=== PATIENT | male | born 1965 | race Caucasian/White ===

== ENCOUNTER → 2020-08-15 09:46 | Outpatient (BNVA) | payer OTHER, SELFPAY | PROVIDERS: PCP Internal Medicine; Visit Provider Urology ==

== ENCOUNTER 2020-09-08 08:04 | Day surgery (SDC) | payer OTHER, SELFPAY ==
[2020-09-08 07:41] VITALS: BMI 24.3
[2020-09-08 08:21] VITALS: BP 132/78; PULSE 56; RESP 18; TEMP 36.6; O2SAT 97
[2020-09-08] MEDS: Lactated Ringers 1,000 ML 20 ML IVCONT (08:42)
--- NOTE | 2020-09-08 08:57 | MHC.SHP ---
Pre-Procedural Eval Section A The patient is an INPATIENT: No Changes since office visit: No Cold of Flu in the past 2 weeks, No New Medical Problems, No Changes in Medication and No Patient answered all questions The History & Physical has been completed within 30 days and I have reviewed it.: Yes Section B Chief Complaint: spermatocele Allergies: Allergies Allergy/AdvReac Type Severity Reaction Status Date / Time aspirin [ASA] Allergy Intermediate GI Verified 09/08/20 07:51 IRRITATION lactose [LACTOSE] Allergy Intermediate GI Verified 09/08/20 07:51 PAIN/BLOATING sulfur dioxide Allergy Intermediate RESP.DISTRE Verified 09/08/20 07:51 [SULFUR DIOXIDE] SS sulfadiazine Allergy Unknown Unknown Verified 09/08/20 07:51 Plan Diagnosis/Plan: Unchanged (left spermatocele removal) I have reviewed the history and physical and performed a pertinent physical examination on my patient. No changes have occurred unless specified.
--- NOTE | 2020-09-08 09:17 | P.CONAN_ITS ---
[facility] Active Problems Active Problems: All Active Problems (Updated 09/02/20 @ 16:11 by Madison adam) Spermatocele of epididymis, multiple (Acute) Past Medical History Medical History Anxiety Depression HTN (hypertension) Leg pain Lumbar degenerative disc disease PTSD (post-traumatic stress disorder) Family History Family History Father Brain tumor Cancer Mother Cancer Surgical History Surgical History History of hydrocelectomy Hx of colonoscopy Hx of right knee surgery Social History Social History Alcohol intake: never Smoking Status: Never smoker Use of substances other than those prescribed or required for medical reasons: No Have you been hit, kicked, punched, or otherwise hurt by someone within the past year? If so, by whom?: No Advance Directives: No Advance Directives Information Provided: No Advance Directives on File: No Recently lost weight without trying: No Meds Allergies Allergy/AdvReac Type Severity Reaction Status Date / Time aspirin [ASA] Allergy Intermediate GI Verified 09/08/20 07:51 IRRITATION lactose [LACTOSE] Allergy Intermediate GI Verified 09/08/20 07:51 PAIN/BLOATING sulfur dioxide Allergy Intermediate RESP.DISTRE Verified 09/08/20 07:51 [SULFUR DIOXIDE] SS sulfadiazine Allergy Unknown Unknown Verified 09/08/20 07:51 Active Medications: Current Medications Generic Name Dose Route Start Last Admin Trade Name Kennethq PRN Reason Stop Dose Admin Lactated Ringer's 1,000 mls @ 20 mls/hr 09/08/20 07:30 09/08/20 08:42 Lr IVCONT 20 mls/hr .Q24H CHELSEA Administration Cefazolin Sodium/Dextrose 2 gm in 50 mls @ 100 mls/hr 09/08/20 08:56 Ancef IV 09/08/20 09:25 PREOP ONE Home Medications Medication Instructions Recorded Confirmed Last Taken Type amlodipine 1 tab PO DAILY 09/02/20 09/02/20 09/08/20 History duloxetine 1 cap PO DAILY 09/02/20 09/02/20 09/08/20 History lorazepam 1 tab PO Q8H PRN 09/02/20 09/02/20 09/08/20 History propranolol 1 cap PO DAILY 09/02/20 09/02/20 09/08/20 History Exam Exam Date and Time: September 08, 2020916 Height,Weight and Vital Signs: Height 5 ft 10 in Weight 77.111 kg Last Vital Signs Temp 98 F 09/08/20 08:21 Pulse 56 09/08/20 08:21 Resp 18 09/08/20 08:21 BP 132/78 09/08/20 08:21 Pulse Ox 97 09/08/20 08:21 Airway Mallampati Class: II TM Dist: >3cm Neck ROM: Full Assessment and Plan Assessment Anesthesia Assessment: Anesthesia Plan Discussed and Chart Reviewed Final Anesthetic Review NPO: Yes ASA Class: II Final Preanesthetic Review: No Changes in Pt Med Stat, Meds/Allgs Chart Reviewed, Consent Obtained/Reviewed and Anes Risks/Benef Reviewed Patient Risk: Low Procedure Risk: Low Assessment/Block/Sedation in SS: Assess/Block/Sedation-SS Anesthetic Plan Anesthetic Plan: GA Disposition: Standard PACU
--- NOTE | 2020-09-08 12:31 | PM.OP ---
Brief Operative Note Date of Service: 09/08/20 Pre-op diagnosis: Left spermatocele Post-op diagnosis: same Procedure: Left spermatocelectomy Surgeon: Roger Rangel MD Anesthesia: GLMA Estimated blood loss (mL): 0 Pathology: other Condition: stable Disposition: same day
--- NOTE | 2020-09-08 12:32 | W.PM.OPN ---
Operative Note Operative Note Date of Service: 09/08/20 Narrative: PreOperative Diagnosis: Left spermatocele Post Operative Diagnosis: Left spermatocele Procedure: Left spermatocelectomy Surgeon: Dr Roger Rangel Anesthesia: General Indications for procedure: This is a 54-year-old male. Previous hydrocele on right side. Presented with what he called 3rd testicle. Was spermatocele on left side. Recommend removal since this impinging. Procedure: After informed consent was verified the patient was brought to the operating room and placed in a supine position. anesthesia was administered per protocol. Testicular area was shaved and prepped a sterile fashion. Safety pause time-out was observed. Antibiotics have been given. A 2 in midline incision was made in the median [place]he. This was carried onto the hydrocele and tunica on the left side. Testicle was delivered. A 2-3 cm spermatocele was seen into [place] with the head of the epididymis. This was slowly sharply and with cautery. The base of the spermatocele was located and follow rated. The space of the spermatocele was closed with 3-0 Vicryl. The testicle was placed back in its dependent position. A 2 layer closure overlying fashion with performed. Skin was closed with interrupted 4-0 chromic sutures. Dressing was placed He tolerated procedure well was extubated in the operating room transferred in stable condition to the recovery area. Pathology: Spermatocele sac Drains: []
[2020-09-08 12:40] VITALS: BP 124/93; PULSE 70; RESP 16; TEMP 36.6; O2SAT 100
[2020-09-08 12:45] VITALS: BP 133/90; PULSE 67; RESP 18; O2SAT 99
[2020-09-08 12:50] VITALS: BP 139/93; PULSE 65; RESP 16; O2SAT 99
[2020-09-08] MEDS: traMADoL HCL 50 MG TABLET PO (12:53)
[2020-09-08] MEDS: Acetaminophen 325 MG TABLET 650 MG PO (12:53)
[2020-09-08 12:55] VITALS: BP 136/83; PULSE 64; RESP 18; O2SAT 99
[2020-09-08 13:10] VITALS: BP 141/82; PULSE 76; RESP 18; TEMP 36.7; O2SAT 99
--- NOTE | 2020-09-08 13:28 | PM.OP ---
Brief Operative Note Date of Service: 09/08/20 Pre-op diagnosis: Prostate cancer Post-op diagnosis: same Procedure: Gold seed implant Surgeon: Roger Rangel MD Anesthesia: local Estimated blood loss (mL): 0 Pathology: none sent Condition: stable Disposition: same day
--- NOTE | 2020-09-08 13:29 | W.PM.OPN ---
Operative Note Operative Note Date of Service: 09/08/20 Narrative: Preoperative diagnosis: Prostate cancer Postoperative diagnosis: Prostate cancer Procedure: 1. Transrectal ultrasound-guided pudendal nerve block 2. Transrectal ultrasound-guided gold seed placement Surgeon: Dr. Roger Rangel Anesthetic: Local Indications for procedure: Prostate Cancer Procedure: After informed consent was verified, the patient was brought into the procedure area and lay left-hand side down on the table. Patient identity confirmed. Perioperative antibiotics confirmed. Gel was placed per rectum Ultrasound probe was placed per rectum A ultrasound-guided pudendal nerve block was performed using 10 cc of 1% lidocaine. 8 cc was placed at the base and 2 cc of the apex. 3 gold seed markers placed. 2 on the right, 1 on the left. The purpose is for triangulation. He tolerated the procedure well. Was able to ambulate to bathroom after 5 minutes. Printed instructions regarding antibiotic use and common side effects such as low-grade temperature and bleeding were given
== END 2020-09-08 13:46 | disposition home or self-care (01) ==
PROVIDERS: PCP Internal Medicine; Visit Provider Urology
PROC: (CPT 54840; principal; 2020-09-08 10:10)
DX: N43.40 Spermatocele of epididymis, unspecified (principal); I10 Essential (primary) hypertension; F43.10 Post-traumatic stress disorder, unspecified; F32.9 Major depressive disorder, single episode, unspecified; Z79.899 Other long term (current) drug therapy; Z88.8 Allergy status to other drugs, medicaments and biological substances; Z88.2 Allergy status to sulfonamides
CPT/HCPCS: 54840; 88304; J0690; J2250; J3010

== ENCOUNTER → 2020-10-14 09:36 | Outpatient (BNVA) | payer OTHER, SELFPAY | PROVIDERS: PCP Internal Medicine; Visit Provider Urology ==

== ENCOUNTER → 2021-04-15 13:17 | Outpatient (BNVA) | payer OTHER, SELFPAY | PROVIDERS: PCP Internal Medicine; Visit Provider Urology ==

== ENCOUNTER 2024-10-16 09:21 | Outpatient (REF) | payer MEDICARE, SELFPAY ==
[2024-10-16 13:28] LABS: MANUAL DIFF FLAG NO
[2024-10-16 13:34] LABS: Basophils Absolute Auto 0.1 X10*3/uL (0.0-0.2); Eosinophils Absolute Auto 0.4 X10*3/uL (0.0-0.4); Eosinophils Percent Auto 6.3 % (0-4); Hematocrit 45.2 % (42.0-52.0); Imm Gran Abs Auto 0.02 X10*3/uL (0.00-0.03); Imm Gran Pct Auto 0.3 % (0.0-0.4); Lymphocytes Absolute Auto 1.6 X10*3/uL (1.2-4.9); Lymphocytes Percent Auto 23.1 % (20-40); Mean Corpuscular HGB Conc 33.2 g/dl (31.0-36.0); Mean Corpuscular Hemoglobin 29.8 pg (27.0-33.0); Mean Corpuscular Volume 89.9 fL (80.0-98.0); Mean Platelet Volume 12.2 fL (9.4-12.4); Monocytes Absolute Auto 1.1 X10*3/uL (0.1-1.2); Monocytes Percent Auto 16.7 % (2-11); Neutrophils Absolute Auto 3.5 x10*3/uL (2.0-8.3); Neutrophils Percent Auto 52.6 % (45-73); Platelet Count 183 X10*3/uL (160-400); Red Blood Count 5.03 X10*6/uL (4.60-5.80); Red Cell Distribution Width 13.5 % (11.0-16.0); White Blood Count 6.7 X10*3/uL (4.8-10.8)
[2024-10-16 14:06] LABS: Alanine Aminotransferase 78 U/L (0-40); Albumin Level 4.3 g/dL (3.5-5.0); Alkaline Phosphatase 87 U/L (39-117); Anion Gap 11 (12-20); Aspartate Amino Transferase 88 U/L (5-37); Bilirubin Total 0.6 mg/dL (0.0-1.0); Blood Urea Nitrogen 10 mg/dL (9-16); Calcium 9.8 mg/dL (8.4-10.2); Carbon Dioxide 25 mmol/L (22-29); Chloride 107 mmol/L (96-108); Cholesterol 132 mg/dL (<200); Estimated Glomerular Filt Rate > 60; Glucose Random 90 mg/dL (60-115); HDL Cholesterol 25 mg/dL (>40); LDL Cholesterol Calculated 87 mg/dL (<100); Potassium 4.5 mmol/L (3.3-5.1); Sodium 138 mmol/L (135-145); Total Protein 8.3 g/dL (6.5-8.0); Triglycerides 103 mg/dL (<150)
[2024-10-16 15:01] LABS: Prostate Specific Antigen 0.15 ng/mL (<0.05-4.0)
== END 2024-10-16 09:22 | disposition home or self-care (01) ==
LOC: HO.MANLDS 09:21
PROVIDERS: Visit Provider Physician Assistant
DX: I10 Essential (primary) hypertension (principal); Z12.5 Encounter for screening for malignant neoplasm of prostate
CPT/HCPCS: 36415; 80053; 80061; 84153; 85025

== ENCOUNTER 2025-02-14 07:28 | Outpatient (AMB) | payer MEDICARE, SELFPAY ==
--- OUTSIDE RECORDS SUMMARY | 2025-02-14 07:30 | XMS_ITS | Encounter Summary ---
Author Organization [facility] Address [address] [facility] [address] [place] [id number] Phone Care Team Providers Care Family Law Paralegal Name Role Phone Nando López DO Primary Care Provider [phone] Encounter Details Date Type Department Care Team (Latest Contact Info) Description 06/08/2017 Transcribe Orders Virtual Department [address] [place] [address] Tami Haney PA-C [address] [place] [address] Chest pain, unspecified type (Primary Dx) Social History Tobacco Use Types Packs/Day Years Used Date Smoking Tobacco: Never Assessed Sex and Gender Information Value Date Recorded Sex Assigned at Not on file Legal Sex Male 9:42 PM EDT Gender Identity Not on file Sexual Orientation Not on file documented as of this encounter Plan of Treatment Not on file documented as of this encounter Visit Diagnoses Diagnosis Chest pain, unspecified type- Primary documented in this encounter Care Teams Family Law Paralegal Relationship Specialty Start Date End Date Nando López DO PCP - General Internal Medicine 12/06/17 documented as of this encounter Additional Source Comments The information contained in this document represents components of the legal health record. It is not the complete legal health record.[facility]
--- OUTSIDE RECORDS SUMMARY | 2025-02-14 07:30 | XMS_ITS | Encounter Summary ---
Author Organization [facility] Address [address] [facility] [address] [place] [id number] Phone Care Team Providers Care Licensed Optician Name Role Phone Nando López DO Primary Care Provider [phone] Encounter Details Date Type Department Care Team (Late st Contact Info) Description 06/07/2017 Ancillary Orders Virtual Department [address] [place] [address] Tami Haney, LORENE [address] [place] [address] Social History Tobacco Use Types Packs/Day Years Used Date Smoking Tobacco: Never Assessed Sex and Gender Information Value Date Recorded Sex Assigned at Not on file Legal Sex Male 9:42 PM EDT Gender Identity Not on file Sexual Orientation Not on file documented as of this encounter Plan of Treatment Not on file documented as of this encounter Visit Diagnoses Not on filedocumented in this encounter Care Teams Licensed Optician Relationship Specialty Start Date End Date Nando López DO PCP - General Internal Medicine 12/06/17 documented as of this encounter Additional Source Comments The information contained in this document represents components of the legal health record. It is not the complete legal health record.[facility]
--- OUTSIDE RECORDS SUMMARY | 2025-02-14 07:30 | XMS_ITS | Data Portability ---
Author Organization [facility], Telehealth Patient Home Address [address] [place] [address] Assessment No assessment recorded. Plan of Treatment Reminders Order Date Submit Date Provider Last Modified By Organization Details Last Modified Time Details Appointments FOLLO W UP 15 2024 10:30A M NAVA GRUBBS Not available Not available Not available Lab PSA, serum or plasm a 2024 025 [facility], [address] [place] [address], [id number], 10/17/2024 13:17:34 CMP, serum or plasm a 2024 025 [facility], [address] [place] [address], [address], 10/17/2024 13:17:33 lipid panel , blood 2024 025 [facility], [address] [place] [address], [address], 10/17/2024 13:17:33 CBC w/ auto diff 2024 025 [facility], [address] [place] [address], [id number], 10/17/2024 13:17:34 CMP, serum or plasm a 2022 023 [facility] (Centralized Electronic Ordering - All Locations), Patient Can Go To The Location Of Their Choice, [id number] 05/03/2023 10:40:05 CBC w/ auto diff 2022 023 [facility] (Centralized Electronic Ordering - All Locations), Patient Can Go To The Location Of Their Choice, [address] 05/03/2023 10:40:05 lipid panel , blood 2022 023 [facility] (Centralized Electronic Ordering - All Locations), Patient Can Go To The Location Of Their Choice, [address] 05/03/2023 10:40:05 PSA, serum or plasm a 2022 023 [facility] (Centralized Electronic Ordering - All Locations), Patient Can Go To The Location Of Their Choice, [id number] 05/03/2023 10:40:05 Referral gastr maddy colon ist refer ral 2024 025 [facility], [address] [place] [address] Dr, [facility], [facility] Y[place]NE, [address], 10/17/2024 09:07:56 ortho pedic surge on refer ral 2023 024 [facility], [address], [address], [place], [address], 04/18/2024 13:36:04 Procedures None recor ded. Surgeries None recor ded. Imaging CT, chest , w/o contr ast - Patie nt does NOT have insur ance 2021 022 [facility], [address] [place], [address], 03/10/2022 08:27:26 Medication Orders propr anolo l ER 120 mg capsu le,24 hr,ex tende d relea se 2024 025 [facility] [place], [address] [place], [address], 02/07/2025 13:47:35 albut lani sulfa te HFA 90 mcg/a ctuat ion aeros ol inhal er 2024 025 [facility] [place], [address], [place], [address], 02/07/2025 13:47:37 amlod ipine 10 mg table t 2024 025 [facility] [place], [place]ne, [address], [place], [address], 02/07/2025 13:47:37 Tobra Dex 0.3 %-0.1 % eye drops ,susp ensio n 2024 025 [facility] [place], [place]ne, [address], [place], [address], 10/16/2024 10:06:10 propr anolo l ER 120 mg capsu le,24 hr,ex tende d relea se 2023 024 [facility] [place], [place]ne, [address] [place], [address], 11/04/2024 12:22:28 loraz epam 1 mg table t 2023 024 [facility] [place], [place], [address], [place], [address], 05/30/2024 11:23:43 amlod ipine 10 mg table t 2023 024 [facility] [place], [place], [address] [place], [address], 11/04/2024 12:22:28 propr anolo l ER 120 mg capsu le,24 hr,ex tende d relea se 2022 023 [facility] [place], [place], [address] [place], [address], 02/07/2024 11:21:02 amlod ipine 10 mg table t 2022 023 [facility] [place], [address] [place], [address], 02/07/2024 11:21:01 loraz epam 1 mg table t 2022 [id number] [facility] [place], [address] [place], [address], 02/08/2024 23:52:33 albut lani sulfa te 2.5 mg/3 mL (0.08 3 %) solut ion for nebul izati on 2022 [facility] [place], [address] [place], [address], 05/07/2023 10:36:53 albut lani sulfa te 2.5 mg/3 mL (0.08 3 %) solut ion for nebul izati on 2021 [facility] [place], [address] [place], [address], 02/19/2022 09:21:10 Flove nt HFA 110 mcg/a ctuat ion aeros ol inhal er 2021 [facility] [place], [address] [place], [address], 02/19/2022 09:21:10 benzo natat e 200 mg capsu le 2021 [email or web address] [facility] [place], [address] [place], [address], 05/03/2023 10:15:52 Patient TargetsNo targets recorded. Patient InstructionsNo instructions recorded. Reason for Referral Orthopedic Surgeon Referral for Pain of left shoulder joint needs second opinion for bilateral shoulder tears & degenerative changes Referring Physician: Danni Mehta, Internal Medicine, Encounter Date: 04/18/2024 Insurance Solicitor Referral for Screening colonoscopy due for 10 year colonoscopy Referring Physician: Danni Mehta, Internal Medicine, Encounter Date: 10/16/2024 Results Created Date Observation Date Name Description Value Unit Range Abnormal Flag Note LastModifiedBy Organization Detail LastModifiedTime 03/25/2003/25/2022 CT, chest , w/o contr ast No observ ation record ed. [email or web address] [facility] [address] [place], [address], 03/29/2022 16:54:00 Result Notes None recorded. Problems Name Problem SNOMED Code Status Onset Date Resolution Date Notes Provider Name and Address Organization Details Recorded Time Anxiety 15142529 Active 2017 stress reaction Not Available [facility] 3 23:42:13 [facility] hyperten giovanni 66957094 Active 2017 Not Available [facility] 3 23:42:13 Divertic ulitis 372373392 Active 2017 Not Available [facility] 3 23:42:13 Chronic low back pain 621229194 Active 2021 Not Available [facility] 3 23:42:13 Chronic obstruct gunnar pulmonar y disease 80884685 Active 2021 NAVA GRUBBS [address] [place], [address], [facility] [place] 5 09:50:05 Gastroes ophageal reflux disease without esophagi tis 025029912 Active 2021 NAVA GRUBBS [address] [place], [address], [facility] [place] 5 09:57:26 Gastroes ophageal reflux disease 905180777 Active 2022 Not Available [facility] 3 23:42:12 Pain of left shoulder joint 74954524547 623553 Active 2023 NAVA GRUBBS [address] [place], [address], [facility] [place] 4 09:27:33 Pain of right shoulder joint 73148000668 137472 Active 2023 NAVA GRUBBS [address] [place], [address], [facility] [place] 4 09:27:50 Hordeolu m externum of lower eyelid of left eye 06284812926 9102 Active 2024 NAVA GRUBBS [address] [place], [address], [facility] [place] 5 08:59:28 Notes:Some problems listed i n Documents: #[id number], #[id number], #[id number], #[id number], #[id number], #[id number] could not be added to this patient's chart. Please review these documents and add these problems to the patient's chart manually as needed. Problem Notes None recorded. Medical Equipment None Reported. Allergies Allergen ID Allergen Name Allergen Category Reaction Reaction Severity Criticality Documentation Date Start Date Code Code System Note Provider Name and Address Organization Details Recorded Time 1440 Substance with sulfonami de structure and antibacte rial mechanism of action (substanc e) medicatio n Not available Not available Not available 10/05/2017 41918 8003 SNOMED Lianne Blanco [facility] 8 10:18:50 3502 lisinopri l medicatio n nausea Not available Not available 01/29/2019 86267 [facility] 11:58:33 993 Product containin g penicilli n (product) medicatio n Not available Not available Not available 09/05/2017 38412 8001 [facility]ED [facility] 08:05:50 Medications Name Sig Start Date Stop Date Status Note LastModified by Organization Details LastModified Time prednison e 10 mg tablet take 5 tabs x 3 daystake 4 tabs x 3 daystake 3 tabs x 3 daystake 2 tabs x 3 daystake 1 tab x 3 days 01/22 completed Not Available Not Available Not Available Tylenol 500 mg capsule Take 2 tablets every 6 hours by oral route. 05/03 completed alternat ing with IBU, Aleve Not Available Not Available Not Available albuterol sulfate 2.5 mg/3 mL (0.083 %) solution for nebulizat ion USE 1 vial via nebulize r THREE TIMES DAILY active Not Available Not Available No t Available azithromy nneka 250 mg tablet TAKE 2 TABLETS BY MOUTH TODAY THEN TAKE 1 TABLET DAILY FOR THE NEXT 4 DAYS 02/19 completed Not Available Not Available Not Available ibuprofen 800 mg tablet TAKE 1 TABLET BY MOUTH THREE TIMES DAILY NEEDED WITH food active Not Available Not Available No t Available benzonata te 200 mg capsule TAKE 1 TABLET BY MOUTH THREE TIMES DAILY NEEDED FOR 14 DAYS. swallow whole 05/03 completed Not Available Not Available Not Available hydrocodo ne 5 mg-acetam inophen 325 mg tablet TAKE 1 TABLET BY MOUTH EVERY 4 HOURS NEEDED FOR PAIN 04/18 completed Not Available Not Available Not Available lisinopri l 20 mg tablet 09/05 completed Not Available Not Available Not Available prednison e 20 mg tablet TAKE 2 TABLETS BY MOUTH DAILY WITH food 02/19 completed Not Available Not Available Not Available amlodipin e 5 mg tablet Take 1.5 tablets every day by oral route as needed for 90 days. 12/06 completed Not Available Not Available Not Available tramadol 50 mg tablet TAKE 1 TABLET BY MOUTH every 6 hours NEEDED FOR PAIN (scale score 4-6) 02/19 completed Not Available Not Available Not Available cefadroxi l 500 mg capsule TAKE 2 CAPSULES BY MOUTH TWICE DAILY 04/18 completed Not Available Not Available Not Available oxycodone -acetamin ophen 5 mg-325 mg tablet Take 1 tablet every 6 hours by oral route for 15 days. 01/22 completed Not Available Not Available Not Available hydromorp km 2 mg tablet TAKE 1 TABLET EVERY 6 HOURS NEEDED 04/18 completed Not Available Not Available Not Available Valium 2 mg tablet Take 1 tablet 3 times a day by oral route as needed. 01/29 completed Not Available Not Available Not Available amlodipin e 10 mg tablet TAKE 1 TABLET BY MOUTH DAILY active Not Available Not Available No t Available benzonata te 100 mg capsule TAKE 1 CAPSULE BY MOUTH THREE TIMES DAILY NEEDED FOR cough. swallow whole 02/19 completed Not Available Not Available Not Available propranol ol ER 80 mg capsule,2 4 hr,extend ed release 09/05 completed Not Available Not Available Not Available furosemid e 20 mg tablet TAKE 2 TABLETS (40mg) BY MOUTH DAILY FOR 7 DAYS 10/16 completed Not Available Not Available Not Available propranol ol ER 120 mg capsule,2 4 hr,extend ed release Take 1 capsule by mouth once a day active Not Available Not Available No t Available lorazepam 1 mg tablet TAKE 1 TABLET BY MOUTH EVERY 8 HOURS NEEDED active Not Available Not Available No t Available albuterol sulfate HFA 90 mcg/actua tion aerosol inhaler Inhale 2 puffs by mouth every 4 hours as needed active Not Available Not Available No t Available lisinopri l 40 mg tablet TAKE 1 TABLET BY MOUTH ONCE DAILY 12/26 completed Not Available Not Available Not Available sertralin e 50 mg tablet 09/05 completed Not Available Not Available Not Available bacitraci n-polymyx in B 500 unit-10,0 00 unit/gram eye ointment APPLY DIRECTLY ON RIGHT UPPER EYELID THREE TIMES DAILY FOR 1 WEEK 10/16 completed Not Available Not Available Not Available tobramyci n 0.3 %-dexamet hasone 0.1 % eye drops,glenny pension INSTILL 1 DROP INTO AFFECTED EYE(S) BY OPHTHALM IC ROUTE EVERY 6 HOURS active Not Available Not Available No t Available duloxetin e 30 mg capsule,d elayed release TAKE 1 CAPSULE BY MOUTH DAILY 04/18 completed Not Available Not Available Not Available duloxetin e 60 mg capsule,d elayed release TAKE 1 CAPSULE BY MOUTH DAILY 06/06 completed Not Available Not Available Not Available Flovent HFA 110 mcg/actua tion aerosol inhaler Inhale 1 puff twice a day by inhalati on route. active Not Available Not Available No t Available Boostrix Tdap 2.5 Lf unit-8 mcg-5 Lf/0.5 mL intramusc ular syringe 12/26 completed Not Available Not Available Not Available Aleve 3 to 4 times a day prn 01/22 completed Not Available Not Available Not Available IBU-200 Takes 2 tablets every 4 to 6 hours. Alternat es with Tylenol and Aleve 01/22 completed Not Available Not Available Not Available Procto-Me d HC 2.5 % topical cream perineal applicato r APPLY A THIN LAYER TO THE AFFECTED AREA(S) BY TOPICAL ROUTE 2-4 TIMES DAILY 05/03 completed Not Available Not Available Not Available Afluria Qd 2018- (36 mos up)(PF)60 mcg (15 mcg x4)/0.5 mL IM syringe ADM 0.5ML IM UTD 10/01 completed Not Available Not Available Not Available Vitals Date Recorded Body height Body mass index (BMI) Body weight Heart rate Oxygen saturation Oxygen saturation in Arterial blood by Pulse oximetry Systolic And Diastolic Provider Name and Address Organization Details Last Updated DateTime 5 175.26 cm 23.8 kg/m2 42017.1 7 g 63 /min 98 % 98 % 122/78 mm[Hg] Marianna Garcias [facility] 5 08:54:07 Date Recorded Body height Body mass index (BMI) Body weight Heart rate Oxygen saturation Oxygen saturation in Arterial blood by Pulse oximetry Systolic And Diastolic Provider Name and Address Organization Details Last Updated DateTime 5 175.26 cm 23.8 kg/m2 96329.3 7 g 60 /min 98 % 98 % 128/70 mm[Hg] Kim Avilez [facility] 5 09:41:24 Date Recorded Body height Oxygen saturation Oxygen saturation in Arterial blood by Pulse oximetry Heart rate Systolic And Diastolic Provider Name and Address Organization Details Last Updated DateTime 2 175.26 cm 96 % 96 % 72 /min 124/70 mm[Hg] Hollie Hauser [facility] 2 08:57:55 Date Recorded Body height Body mass index (BMI) Body weight Heart rate Oxygen saturation Oxygen saturation in Arterial blood by Pulse oximetry Systolic And Diastolic Provider Name and Address Organization Details Last Updated DateTime 4 175.26 cm 23.6 kg/m2 98374.7 8 g 60 /min 98 % 98 % 120/80 mm[Hg] Kim Avilez [facility] 4 09:10:07 Date Recorded Body weight Heart rate Oxygen saturation Oxygen saturation in Arterial blood by Pulse oximetry Systolic And Diastolic Provider Name and Address Organization Details Last Updated DateTime 3 42629.9 6 g 62 /min 99 % 99 % 98/62 mm[Hg] Ester Shanks [facility] 3 10:18:37 Social History Question Answer Notes LastModified by Organizat ion Details LastModified Time Tobacco Smoking Status Current Some Day Smoker Not Available [facility] 03/18/2020 03:36:23 What Was The Date Of Your Most Recent Tobacco Screening? 02/06/2025 [email or web address] Information not available 02/06/2025 How Much Tobacco Do You Smoke? 0.25 PPD Information not available 09/09/2021 How Many Years Have You Smoked Tobacco? 40 [id number] Information not available 03/18/2020 Sex: Unknown Functional Status Question Answer Note LastModified by Organization D etails LastModified Time Do you or have you ever used any other forms of tobacco or nicotine? No Information not available 09/09/2021 Mental Status None recorded. Family History Nothing Reported. Medical History No medical history recorded. Immunizations Vaccine Type Date Status Note Provider Nam e and Address Organization Details Recorded Time COVID-19, mRNA, LNP-S, PF, 30 mcg/0.3 mL dose 1 completed Not Available [facility] 05/05/2023 23:42:13 COVID-19, mRNA, LNP-S, PF, 30 mcg/0.3 mL dose 1 completed Not Available [facility] 05/05/2023 23:42:13 COVID-19, mRNA, LNP-S, PF, 30 mcg/0.3 mL dose 1 completed Not Available [facility] 05/05/2023 23:42:13 Influenza, split virus, quadrivalent, preservative 1 completed Not Available [facility] 05/05/2023 23:42:13 Tdap 8 completed Not Available [facility] 05/05/2023 23:42:13 Influenza, split virus, quadrivalent, preservative 9 completed Not Available [facility] 05/05/2023 23:42:13 Past Encounters Encounter ID Performer Location Encounter Start Date Encounter Closed Date Diagnosis/Indication Diagnosis SNOMED-CT Code Diagnosis ICD10 Code Diagnosis IMO Codes Diagnosis Note [id number] DO Abiel [facility] [address] [facility],[address] [facility] [place] [address] 09/05/2017 13:46:20 09/05/2017 15:35:07 Anxiety 38860627 F41.9 not well controlled on lorazepam alone at some point I believe we will need to retry a different SSRI, for the time being patient wants to trial CBD oil. I have explained that there is not robust evidence suggesting benefits of CBD oil for either anxiety or HTN. nonetheles s pt would like to try. will fill out aflac paperwork to take time out of work while BP and anxiety are stabilized Essential hypertension 21097737 I10 continue lisinopril , amlodipine , propranolo l f/u 2 weeks, further changes at that time. too early to assess full affect of amlodpine Cyst of epididymis 09293 002 N50.3 found in ED, seen on u/s [id number] Nando López [facility] [address] [facility],[place] [address] 10/05/2017 10:08:01 10/05/2017 11:11:27 Anxiety 14089135 F41.9 still on just the lorazepam 1 mg TID anxiety has been a little better, not as tired or fatigued has been working less Essential hypertension 85766850 I10 continue lisinopril , amlodipine , propranolo l f/u 2 weeks, further changes at that time. too early to assess full affect of amlodpine Cyst of epididymis 19916 002 N50.3 has f/u with urology [id number] Nando López [facility] [address] [facility] [place] [address] 11/02/2017 11:03:43 11/02/2017 11:58:25 Anxiety 76459089 F41.9 still on just the lorazepam 1 mg TID, tries to take fewer doses, but then his anxiety amps up anxiety has been a little better, not as tired or fatigued he's been on disability for poorly controlled htn, which is exacerbate d by stress/anx iety of his job already seeing therapy. not seeing psych - will consult Essential hypertension 25251025 I10 continue lisinopril , propranolo l increase amlodipine Cyst of epididymis 14677 002 N50.3 has f/u with urology [id number] Nando López DO [facility] [address] [facility] [address],[place] [address] 12/06/2017 08:53:34 12/06/2017 09:46:06 Anxiety 54069379 F41.9 still on just the lorazepam 1 mg TID he's been on disability for poorly controlled htn, which is exacerbate d by stress/anx iety of his job already seeing therapy. not seeing psych - will consult Essential hypertension 99993033 I10 well controlled on current regimen Cyst of epididymis 61224 002 N50.3 has f/u with urology Joint pain in right hand 9362741935 082822 M25.541 [id number] Nando López DO [facility] [address] [facility],[place] [address] 01/06/2018 09:01:14 01/06/2018 13:57:58 Anxiety 07412551 F41.9 still on just the lorazepam 1 mg TID he's been on disability for poorly controlled htn, which is exacerbate d by stress/anx iety of his job already seeing therapy. he's [facility]ri [facility], but they are not really working to get his anxiety in any better control he will consider alternativ e providers. he understand s that if he chooses to pursue LT disability he will have to have the psychiatri st qualify this as I am no longer filling out disability on the basis of poorly controlled HTN. Essential hypertension 31520433 I10 well controlled on current regimen Screening procedure 2012 5006 Z13.9 [id number] Nando López DO [facility] [address] [facility] [address],[place] [address] 02/07/2018 09:15:48 02/07/2018 10:08:26 Anxiety 43669271 F41.9 still on just the lorazepam 1 mg TID he's been on disability for poorly controlled htn, which is exacerbate d by stress/anx iety of his job already seeing therapy. he's been seeing psychiatri st [facility], but they are not really working to get his anxiety in any better control he will consider alternativ e providers. he understand s that if he chooses to pursue LT disability he will have to have the psychiatri st qualify this as I am no longer filling out disability on the basis of poorly controlled HTN. Essential hypertension 95611047 I10 well controlled on current regimen Screening procedure 2012 5006 Z13.9 [id number] Nando López [facility] [address] [facility],[place] [address] [place] [place] [address] 05/05/2018 10:35:55 05/05/2018 15:54:36 Anxiety 39141059 F41.9 stable on the lorazepam pt will call for the rx, paying out of pocket until insurance kicks back in Essential hypertension 16353378 I10 well controlled on current regimen pt will call for rx [id number] Nando López [facility] [address] [facility],[place] [address] 12/26/2018 14:55:28 12/26/2018 15:56:33 Decrease in appetite 95972261 R63.0 will get labs as below Unintentio nal weight loss 849013952 R63.4 has lost about 10 lbs from 6 months ago Essential hypertension 70990472 I10 well controlled on current regimen pt will call for rx Anxiety 17713247 F41.9 stable on the lorazepam well controlled Screening procedure 2012 5006 Z13.9 [id number] Nando López [facility] [address] [facility],[place] [facility] [place] [address] 01/29/2019 11:29:28 01/29/2019 13:35:57 Acute low back pain 051196924 M54.5 will defer PT at this time Anxiety 49191986 F41.9 stable on the lorazepam well controlled Essential hypertension 91059406 I10 well controlled on current regimen pt will call for rx [id number] Nando López [facility] [address] [facility],[place] [facility] [place] [address] 05/02/2019 09:07:03 05/02/2019 09:35:22 Essential hypertension 93809429 I10 stable relates tolerating the med Diverticulitis 771055510 K57.92 quiet and is doing great Anxiety 50430636 F41.9 [place] [id number] Nando López [facility] [address] [facility] [address],[place] [address] 11/02/2019 15:48:02 11/02/2019 16:28:56 Anxiety 42880882 F41.9 stable Essential hypertension 26438063 I10 BP 124/90, excellent control on medication [id number] Nando López [facility] [address] [facility] [address],[place] [address] 12/24/2019 14:07:20 12/24/2019 14:59:51 Lumbago with sciatica 348636690 M54.42 will try anther pred taper and see if he improves had improvemen t last time he was on a pred taper Anxiety 84678475 F41.9 stable Essential hypertension 08923040 I10 BP 124/80, excellent control on medication [id number] Nando López [facility] [address] [facility],[place] [address] 01/01/2020 13:37:02 01/01/2020 14:40:21 Acute low back pain 311498044 M54.5 worsening Lumbar radiculopathy 128 869621 M54.16 still radiating down his leg with certain positions Spinal jos nosis of lumbar region 81061151 M48.061 no comfortabl e position > seeing specialist , will give short course of percocet [id number] Nando López [facility] [address] [facility] [address] [address] 02/11/2020 09:21:32 02/11/2020 12:09:36 Depressive disorder 82334904 F32.9 will try patient on cymbalta and see if he has improvemen t on that Low back pain 709844878 M54.5 some improvemen t due to insurance issue the patient cannot see specialist but is working on getting on disability will work on paperwork [id number] Nando López [facility] [address] [facility] [address] [address] 04/04/2020 09:31:37 04/04/2020 10:17:17 Anxiety 41307563 F41.9 stable Depressive disorder 3548 9007 F32.9 would like to increase dose will see if 60 mg is more beneficial if not can do max of 120 mg per day Essential hypertension 23600100 I10 needs refills [id number] Nando López [facility] [address] [facility] [address] [address] 12/02/2020 09:39:57 12/02/2020 10:52:55 Anxiety 34554589 F41.1 stable Essential hypertension 89703643 I10 stable Depressive disorder 3548 9007 F32.9 stable Degenerati on of lumbar intervertebral disc 60753300 M51.36 discussed alternativ es for second opinions Ex-smoker 8740521 Z87.89 1 will fu with screening XR first [id number] Nando López [facility] [address] [facility] [address] 09/09/2021 09:14:20 09/09/2021 17:01:39 Anxiety 55155165 F41.1 stable Essential hypertension 91975467 I10 stable Chronic low back pain 27 5069870 M54.59 stable [id number] Nando López [facility] [address] [facility] [address] [address] 02/19/2022 08:51:17 02/19/2022 10:51:56 Chronic obstructive pulmonary disease 04965058 J41.[address] up [address] for further evaluation of his lungsstart on neb treatment PRN for flare upsstart on ICS, will see what his insurance covers [employer] Lay refilled [id number] Nando López [facility] [address] [facility] [address] [address] 05/03/2023 10:12:00 05/03/2023 14:53:17 Chronic obstructive pulmonary disease 25135817 J41.0 stable Anxiety 48696076 F41.1 stable Gastroesop hageal reflux disease 308491514 K21.9 will set up with propranolo l Adult heal th examination 200698706 Z00.00 stable [id number] Nando López [facility] [address] [facility],[place] [address] 04/18/2024 09:02:35 04/18/2024 09:48:13 Chronic obstructive pulmonary disease 62140552 J41.0 stable Anxiety 07492312 F41.1 stable Pain of le ft shoulder joint 9509504335 7604397 M25.512 needs to f/u with a second opinion Pain of ri ght shoulder joint 1815285825 9256531 M25.511 tear of the supraspina tus now Gastroesop hageal reflux disease 807385633 K21.9 needs refill [id number] Nando López [facility] [address] [facility],[place] [address] 10/16/2024 08:48:23 10/16/2024 14:55:38 Depression screening 665188360 Z13.31 negative Hordeolum externum of lower eyelid of left eye 9369300857 43979 H00.763 8987436 will start on topical drop for eyes Chronic ob structive pulmonary disease 40178712 J41.0 stable Essential hypertension 06008069 I10 stable Screening colonoscopy 44 0711131 Z12.11 974553 will set up with GI referral for 10-year repeat colonoscop y Screening for malignant neoplasm of prostate 375983311 Z12.5 946331 needs screening [id number] Nando Otilio López [facility] [address] [facility],[place] [address] 02/06/2025 09:33:51 02/06/2025 10:23:09 Anxiety 41208224 F41.1 stable Gastroesop hageal reflux disease 716033544 K21.9 needs refill Chronic ob structive pulmonary disease 90182184 J41.0 stable Gastroesop hageal reflux disease without esophagitis 380165098 K21.00 stable Health Concerns Section Related Observation LastModified by Organization Detai ls LastModified Time None Recorded Concern Status LastModified by Organization Details LastModified Time None Recorded Advance Directives Directive None Recorded Payers Insurance Date Sequence Insurance Name Policy Number Policy Villafuerte Covered Member ID Villafuerte Member ID Guarantor Name 02/03/2025 1 [employer] [place] [employer] (MEDICAID HMO) MAMMP Sonny Trempe [id number] Sonny Trempe 01/29/2020 *SELF PAY* Shay louise Trempe 12/25/2019 *SELF PAY* Shay louise Trempe 05/02/2023 SLIDING FEE SCHEDULE - DISCOUNT Sonny Trempe 04/18/2024 1 [facility] [id number] Sonny Rivas Trempe [id number] Sonny Trempe 04/18/2024 1 [place] Sonny Trempe [id number] Sonny Trempe 04/18/2024 1 [facility] (MEDICAID REPLACEMENT - HMO) [id number] Sonny Trempe [id number] Sonny Trempe 04/18/2024 1 [facility] (MEDICAID REPLACEMENT - HMO) [id number] Sonny Trempe [id number] Sonny Trempe Notes Date Note Type Note Provider Name a al Address Organization Details Recorded Time 2 text/html ROS as noted in the HPI ER f/u the patient reports that he has congestion and coughXR showed possible COPD, will get CT for more clear view of the lungs for confirmation will start on correct inhalerscontinue albuterol, ipatropium, start ICS inhaler set up with nebulizer refill cough suppressant, use PRN will fu after CT [facility] [address] [place] [address], [phone], [facility] 02/19/2022 09:25:22 3 text/html Medicare Annual Wellness VisitReported by PatientSocial/Behavior al HistoryFor diet and nutrition, patient reportshealthy diet. For fracture risk, patient reportsno history of fractures,no recent explained fracture,no sudden unexplained fractures, andno previous musculoskeletal injuries. For physical activity, patient reportsexercises on a regular basis,recent increase in physical activity, andgood physical condition.Mental Status:For depression risk, patient reportsnever feels sad, empty, or tearful,no loss of interest in activities,no significant changes in weight,no sleep disturbances or insomnia,no agitation,no loss of energy,no feelings of worthlessness or guilt,no thoughts of suicide,no history of depression, andno history of mood disorders. For orientation, patient reportsno disorientation to time,no disorientation to date, andno disorientation to place. For concentration and memory, patient reportsno decreased concentrating ability,no memory lapses or loss, anddoes not forget words. For speech/motor difficulties, patient reportsno speech difficulties,no difficulty expressing formulated concepts,no difficulty with fine manipulative tasks,no difficulty writing/copying,no slowed reaction time, anddoes not knock things over when trying to pick them up.Functional AbilityFor hearing, patient reportsno loss of hearing. For vision, patient reportsno vision problems. For activities of daily living, patient reportsable to bathe with limited or no assistance,able to contol urination and bowels,able to dress with limited or no assistance,able to feed self with limited or no assistance,able to get out of chair or bed with limited or no assistance,able to groom with limited or no assistance, andable to toilet with limited or no assistance. For instrumental activities of daily living, patient reportsable to do house work with limited or no assistance,able to grocery shop with limited or no assistance,able to manage medications with limited or no assistance,able to manage money with limited or no assistance,able to prepare meals with limited or no assistance, andable to use the phone with limited or no assistance. For falls risk assessment, patient reportsno frequent falls while walking,no fall in the past year,no fall since last visit, andno dizziness/vertigo. For home safety, patient reportsno unsafe carlito hazzards,no unsafe stairs,no unsafe gas appliances,working smoke/co detectors,wears protective head gear for biking/high velocity,use of seatbelts,practicing 'safer sex',no vision or hearing loss while driving,no fire arms,has hand bars in the bathroom/shower, andgood lighting in the home. the patient is currently recovering from surgery of his [place] his average resting HR is around 55 bpm asthma has been stable BP is excellent [facility] [address] [place], [address], [facility] [place], [facility] 05/03/2023 10:46:58 4 text/html ROS as noted in the HPI f/u medication check the patient reports the he is still having issues with his left shoulderhas had two surgeries which has not improved his issuesthe patient had bone spurs and arthritis that his doctor has had to go in twice nowthe patient still has limited ROM with flexion, extension, int and ext rotation the patient needs refill of his medication today in the office the patient BP is 120/80 L arm sittingthe patient is doing well on the BP medication with no side effects and no adjustment of their medications [facility] medicationdenies chest pain, sob, ankle swelling, orthopnea, palpitations will set up with second opinion for the L shoulder COPD stableGERD stable will try of the duloxetine since he thinks it's causing weeping eyes [facility] [address] [place], [address], [facility], [place] 04/18/2024 09:45:46 5 text/html ROS as noted in the HPI 6 mos medication check HTN: today in the office the patient BP is 122/78 L arm sittingthe patient is doing well on the BP medication with no side effects and no adjustment of their medications needed today [facility] the [facility] medicationdenies chest pain, sob, ankle swelling, orthopnea, palpitations hordeolum externum: both eyes, more predominant on the L lower eye lidsending in tobradex, continue warm compresses colonoscopy: the patient reports he is due for he 10 yr colonoscopy COPD: stable, no significant changes, no affect from allergies depression screening: The patient denies little pleasure in activities they find enjoyable, feeling depressed, difficulties sleeping, feeling tired or having little energy, change in appetite, feeling guilty, overwhelmed or unmotivated. The patient denies suicidal ideation, thoughts of hurting themselves or others. Their mood is appropriate, they show good judgement and clear understanding of the conversation. They are orientated to time, place and person. They are not expressing any concerning thoughts or actions that would need further investigation and treatment for mental health. [facility] [address] [place], [address], [facility], [place] 10/16/2024 09:16:22 5 text/html ROS as noted in the HPI f/u medication check HTN: today in the office the patient BP is 128/70 L arm sitting the patient is doing well on the BP medication with no side effects and no adjustment of their medications needed today at the appointment well-controlled on medication denies chest pain, sob, ankle swelling, orthopnea, palpitations COPD: stable, no issuesneeds a new inhaler GERD: stable eye/eye infection: the drops worked great for the patientgiven refillsrelated to allergies that develop/increase his risk for infectionalso using warm compresses [facility] [address] [place] [address], [phone], [facility] 02/06/2025 10:01:24
--- OUTSIDE RECORDS SUMMARY | 2025-02-14 07:31 | XMS_ITS | Clinical Summary ---
Author Organization [facility] Address [address] [place] [address] Phone Care Team Providers Care Retail Associate Name Role Phone Nando Lópze Primary Care Provider [phone] Social History Tobacco Use Types Packs/Day Years Used Date Smoking Tobacco: Never Assessed Education Answer Date Recorded Are you interested in more education? Not on cassie e 09/10/2022 Are you concerned about learning? Not on file 09/10/2022 No 09/10/2022 No 09/10/2022 Digital Access Answer Date Recorded No 10/11/2022 No 10/11/2022 No 10/11/2022 Reliable internet access at home? Not on file 10/11/2022 Device with a working camera? Not on file Sex and Gender Information Value Date Recorded Sex Assigned at Not on file Legal Sex Male 9:42 PM EDT Gender Identity Not on file Sexual Orientation Not on file Plan of Treatment Health Maintenance Due Date Last Done Comments Adult Td,Tdap Booster 1964 LIPID PANEL 1964 DEPRESSION SCREENING 1976 HEPATITIS C SCREENING 1982 HIV ONE-TIME SCREENING (18-6 5 YEARS) 1982 PNEUMOCOCCAL VACCINES (50+ years) (1 of 1 - PCV) 2014 ZOSTER VACCINES (1 of 2) 2014 COVID-19 VACCINE (2023-2 5 season) 2024 04/15/2021, 10/03/2020, 09/11/2020 RSV VACCINE (1 - 1-dose 75+ series) 09/19/2039 COLORECTAL CANCER SCREENING Completed HEPATITIS A VACCINES Aged Out No long er eligible based on patient's age to complete this topic HIB VACCINES Aged Out No longer eligi ble based on patient's age to complete this topic MENINGOCOCCAL VACCINES (ACWY) Aged Out No longer eligible based on patient's age to complete this topic MENINGOCOCCAL VACCINES (B) Aged Out N o longer eligible based on patient's age to complete this topic Medical Devices Not on file Insurance [place] [address] [place], [place] [address] [place], [place] [address] [place] [place] [address] [place] [place] [address] [place], [place] [address] Care Teams Retail Associate Relationship Specialty Start Date End Date Nando López DO [email or web address] PCP - General Internal Medicine 12/06/17 Additional Source Comments The information contained in this document represents components of the legal health record. It is not the complete legal health record.[facility]
--- OUTSIDE RECORDS SUMMARY | 2025-02-14 07:31 | XMS_ITS | Encounter Summary ---
Author Organization [facility] Address [address] [place] [address] Phone Care Team Providers Care Field Nurse Name Role Phone Nando López Primary Care Provider [phone] Encounter Details Date Type Department Care Team (Late st Contact Info) Description 12/06/2017 Ancillary Orders Virtual Department [address] [place] [address] Tami Haney, LORENE [address] [place] [address] Pain in joints of right hand Social History Tobacco Use Types Packs/Day Years Used Date Smoking Tobacco: Never Assessed Sex and Gender Information Value Date Recorded Sex Assigned at Not on file Legal Sex Male 9:42 PM EDT Gender Identity Not on file Sexual Orientation Not on file documented as of this encounter Plan of Treatment Not on file documented as of this encounter Results * XR HAND 3 OR MORE VIEWS (RIGHT) (12/06/2017 10:22 AM EDT) Anatomical Region Laterality Modality Hand Right Radiographic Zeny ging 12/06/2017 10:4 3 AM EDT Impressions 12/06/2017 10:45 AM EDT No significant bony abnormality. POS - [id number] Narrative 12/06/2017 10:45 AM EDT Frontal, lateral, and oblique views disclose no fracture, subluxation, or other significant abnormality involving the visualized regional skeletal structures. Procedure Note Abhinav Caldera MD - 12/06/2017 Frontal, lateral, and oblique views disclose no fracture, subluxation, orother significant abnormality involving the visualized regional skeletalstructures. IMPRESSION: No significant bony abnormality. POS - [id number] August Medina PAULSON IMG XR UPPER EXTREMITY Final Result documented in this encounter Visit Diagnoses Diagnosis Pain in joints of right hand Pain in joints of right hand documented in this encounter Care Teams Field Nurse Relationship Specialty Start Date End Date Nando López DO [email or web address] PCP - General Internal Medicine 12/06/17 documented as of this encounter Additional Source Comments The information contained in this document represents components of the legal health record. It is not the complete legal health record.[facility]
--- NOTE | 2025-02-14 07:45 | MHC.OFFVIS ---
Vital Signs 02/14/25 08:13 Height 5 ft 9 in Weight 168 lb BMI 24.8 BP 126/74 Blood Pressure Location Lt brachial Position Sitting Pulse 76 Pulse Oximetry (%) 98 Oxygen Delivery Method Room Air Intake Visit Reasons: [place] screening r/s 01/03/25 Intake Note: Patient new consult for pre Colonoscopy screening Patient denies any GI issues. Knot Cutter Required: No Accompanied by: Self / Same As Patient Allergies aspirin (ASA) Allergy (Intermediate, Verified 02/14/25 07:57) GI IRRITATION lactose (LACTOSE) Allergy (Intermediate, Verified 02/14/25 07:57) GI PAIN/BLOATING lisinopril Allergy (Intermediate, Verified 02/14/25 08:02) Abdominal Pain sulfur dioxide (SULFUR DIOXIDE) Allergy (Intermediate, Verified 02/14/25 07:57) RESP.DISTRESS shellfish derived (shellfish) Allergy (Mild, Verified 02/14/25 08:26) Stomach Upset sulfadiazine Allergy (Unknown, Verified 02/14/25 07:57) Unknown acetaminophen (From Percocet) Adverse Reaction (Mild, Verified 02/14/25 08:25) Headache oxycodone (From Percocet) Adverse Reaction (Mild, Verified 02/14/25 08:25) Headache Medication List - Last Reconciled 02/14/25 by Emily Gongora CNP albuterol sulfate 90 mcg/actuation (Ventolin HFA) 2 puffs inhalation Q6H PRN amlodipine 1 tab PO DAILY duloxetine 1 cap PO DAILY lorazepam 1 tab PO Q8H PRN propranolol ER 1 cap PO DAILY tobramycin-dexamethasone 0.3-0.1 % 1 drp ophthalmic (eye) Q6H HPI HPI [place] screening r/s 01/03/25: Details: Patient is a 59-year-old male with PMH of hypertension, PTSD, depression and anxiety. Referred by PCP for pre colonoscopy screening Patient is accompanied by his partner Esther. This will be his second colonoscopy. Reports his first was approx 10 years ago at [facility] with normal findings. Patient presents for screening colonoscopy. Denies any changes in bowel habits?reports daily BMs without constipation or diarrhea. Endorses chronic heartburn, worse when lying down and most nights, with associated raspy voice; symptomatically managed with antacids (Tums) as needed and positional adjustments (head elevation). Symptoms have been present for years. Denies dysphagia or regurgitation. Reports recent liver enzyme elevation (thought to be related to past high acetaminophen use and alcohol history). Eye allergies currently treated by ophthalmology, unrelated to GI. History notable for headaches and family history of multiple malignancies (see PMH). Patient denies: fever/chills, n/v, appetite changes, regurgitation,dysphasia, unintentional wt loss, ab pain or melena/hematochezia. Social hx: -ETOH use, 2-3x/week -occasional marijuana (edible), denies other recreational drug use -current smoker: barely, sometimes 2 cigarettes/day; a pack lasts 3?4 days; reducing due to respiratory concerns. - family hx as below -denies personal hx of CA -denies significant cardiopulmonary history -tolerated anesthesia in the past without difficulty [facility] Medical History (Updated 02/14/25 @ 08:49 by Emily Gongora CNP) Acid reflux Colon cancer screening Elevated liver enzymes Anxiety Leg pain Lumbar degenerative disc disease Depression PTSD (post-traumatic stress disorder) HTN (hypertension) Surgical History (Updated 02/14/25 @ 08:08 by Nichole Posey) Hx of shoulder replacement Hx of right knee surgery Hx of colonoscopy History of hydrocelectomy Family History (Updated 02/14/25 @ 08:28 by Emily Gongora CNP) Father Brain tumor Cancer Mother Cancer Sister Cancer Social History Alcohol intake: never Comment: Medicated, see MAR Review of Systems Const Reports as per HPI ENT Reports as per HPI Card Reports as per HPI Resp Reports as per HPI GI Reports as per HPI Reports as per HPI Physical Exam Vital Signs: Last Vital Signs Pulse 76 02/14/25 08:13 BP 126/74 02/14/25 08:13 Pulse Ox 98 02/14/25 08:13 Oxygen Delivery Method Room Air 02/14/25 08:13 BMI result Body Mass Index 24.8 Const General: healthy appearing, no acute distress and well developed Nutritional Appearance: average body habitus Orientation/consciousness: patient oriented x3 HEENT Head: Yes normal to inspection, Yes normocephalic and Yes atraumatic Face and sinus: Yes normal facial exam Eyes General: appearance normal, both eyes and all related structures Neck Neck: Yes normal visual inspection Resp Effort & Inspection: normal respiratory effort, able to speak in complete sentences, no tracheal deviation and symmetric chest movement Cardio Jugular venous distension: no JVD Neuro General: patient oriented x3 Gait exam (Neuro): Normal gait present Psych Appearance: grossly normal Mental Status: mental status grossly normal Speech and movement: Normal speech and movement present Affect: normal affect Attitude: cooperative Thought process: Normal thought process present Thought content: Normal thought content present Insight: Good insight present (Psych) Judgement: Good judgement present (Psych) Results Reviewed Results Reviewed: Laboratory Tests 10/16/24 09:25 Total Bilirubin 0.6 AST 88 H ALT 78 H Alkaline Phosphatase 87 Total Protein 8.3 H Albumin 4.3 Triglycerides 103 Cholesterol 132 LDL Cholesterol, Calc 87 HDL Cholesterol 25 L Assessment & Plan Assessment & Plan (1) Colon cancer screening: Code(s): Z12.11 - Encounter for screening for malignant neoplasm of colon Category: Medical Plan: Appropriate interval for 2nd screening colonoscopy (last C-scope 10 yrs ago, reported as normal). Additional Testing: - Standard colonoscopy prep with large-volume lavage (PEG-based), with pre-treatment using Senna (due to allergy to bisacodyl laxatives). - Prescriptions sent for bowel prep, Senna, and simethicone. Medication Management: Review and reconcile allergy profile/prep regimens. Lifestyle Recommendations: - Follow outlined prep instructions, including clear liquid diet, avoidance of red/blue/purple liquids, and arrange transportation. Follow-Up: Scheduling team to contact with date; in-office F/U post-procedure for results and any further management. (2) Acid reflux: Code(s): K21.9 - Gastro-esophageal reflux disease without esophagitis Category: Medical Qualifiers: Esophagitis presence: esophagitis presence not specified Qualified Code(s): K21.9 - Gastro-esophageal reflux disease without esophagitis Plan: - Chronic heartburn, reflux worse at night, raspy voice; responds to antacids and positional therapy; GERD features > typical frequency. - Additional Testing: Recommended EGD (upper endoscopy) to assess for esophagitis, Live's, other pathology (to be co-scheduled with colonoscopy). - Medication Management: Continue Tums PRN. Declined further acid suppression (PPI/H2) at this time. - Lifestyle Recommendations: - Elevate HOB, avoid late/evening meals, smaller/frequent meals, avoid triggers (alcohol, smoking, spicy/fatty/fried foods), weight management as able. - Follow-Up: Post-procedure visit to review EGD and colonoscopy results. (3) Elevated liver enzymes: Code(s): R74.8 - Abnormal levels of other serum enzymes Category: Medical Plan: elevated liver enzymes on 10/2024 labs, low HDL, diet pattern, EtOH use, previous acetaminophen overuse. Additional Testing: Specialty labs discussed (viral hepatitis, autoimmune markers, iron studies, synthetic function), but pt wishes to delay until post-colonoscopy; discuss with PCP/insurance as needed. Medication Management: No pharmacologic therapy indicated; review necessity of hepatotoxic meds; avoid unnecessary acetaminophen and EtOH. Lifestyle Recommendations: - Heart-healthy, liver-friendly diet (reduce fried and processed foods, increase whole foods/vegetables, lean protein, healthy fats) - Abstinence/minimization of EtOH intake - Weight optimization if overweight, increased physical activity if able Follow-Up: Readdress after colonoscopy/procedure; consider comprehensive metabolic evaluation then. Plan Follow-up after endoscopy or sooner as needed Time: I spent a total of 37 minutes on the date of encounter which includes: Preparing to see the patient (reviewed previous documentation, test results and medical history) Performing a medically appropriate exam and/or evaluation Ordering medications, tests, and procedures Documenting clinical information in the health record Orders: Referrals GI Procedure Notification K21.9 - Gastro-esophageal reflux disease without esophagitis, Z12.11 - Encounter for screening for malignant neoplasm of colon Medications: New simethicone (Gas Relief (simethicone)) per colonoscopy prep instructions 125 mg PO ONCE 4 caps 0RF abdominal distention sennosides (senna) two capsules nightly, starting 3 days prior to colonoscopy 17.2 mg (2 x 8.6 mg) PO BEDTIME 6 caps 0RF 3 days peg 3350-electrolytes 236-22.74-6.74 -5.86 gram until fecal effluent is clear 240 mL PO Q10M 4,000 mL 0RF Coding Level of Care Code New Pt New Pt Level 3 (94467) Patient Type New Diagnoses Colon cancer screening Z12.11 Gastroesophageal reflux disease, unspecified whether esophagitis present K21.9 Esophagitis presence: esophagitis presence not specified Elevated liver enzymes R74.8
[2025-02-14 08:13] VITALS: BP 126/74; PULSE 76; O2SAT 98; BMI 24.8
== END 2025-02-14 09:03 | disposition home or self-care (01) ==
LOC: HO.HGI 07:29
PROVIDERS: PCP Internal Medicine; Visit Provider Nurse Practitioner Family
DX: Z01.818 Encounter for other preprocedural examination (principal); Z12.11 Encounter for screening for malignant neoplasm of colon; K21.9 Gastro-esophageal reflux disease without esophagitis; R74.01 Elevation of levels of liver transaminase levels
CPT/HCPCS: 99024

== ENCOUNTER → 2025-02-14 07:28 | Outpatient (BNVA) | payer MEDICARE, SELFPAY | PROVIDERS: PCP Internal Medicine; Visit Provider Nurse Practitioner Family | DX: Z12.11 Encounter for screening for malignant neoplasm of colon (principal); K21.9 Gastro-esophageal reflux disease without esophagitis; R74.8 Abnormal levels of other serum enzymes | CPT/HCPCS: 99212 ==

== ENCOUNTER 2025-04-17 07:30 | Day surgery (SDC) | payer MEDICARE, SELFPAY ==
--- OUTSIDE RECORDS SUMMARY | 2025-04-04 17:19 | XMS_ITS | Encounter Summary ---
Author Organization [facility] Address [address] [place] [id number] Phone Care Team Providers Care Cutting Torch Operator Name Role Phone Nando López DO Primary Care Provider [phone] Encounter Details Date Type Department Care Team (Late st Contact Info) Description 12/06/2017 Ancillary Orders Virtual Department [address] [place] [address] Tami Haney, LORENE [address] [place] [address] [email or web address] Pain in joints of right hand Social [...] hand documented in this encounter Care Teams Cutting Torch Operator Relationship Specialty Start Date End Date Nando López DO [email or web address] PCP - General Internal Medicine 12/06/17 documented as of this encounter Additional Source Comments The information contained in this document represents components of the legal health record. It is not the complete legal health record.[facility]
--- OUTSIDE RECORDS SUMMARY | 2025-04-04 17:19 | XMS_ITS | Data Portability ---
Author Organization [facility], Telehealth Patient Home Address [address] [place] [address] Assessment No assessment recorded. Plan of Treatment Reminders Order Date Submit Date Provider Last Modified By Organization Details Last Modified Time Details Appointments FOLLO W UP 15 2024 10:30A M NAVA GRUBBS Not available Not available Not available Lab PSA, serum or plasm a 2024 025 [facility], [address] [place] [address], [id number], 10/17/2024 13:17:34 CMP, serum or plasm a 2024 025 [facility], [address] [place] [address], [id number], 10/17/2024 13:17:33 lipid panel , blood 2024 025 [facility], [address] [place] [address], [id number], 10/17/2024 13:17:33 CBC w/ auto diff 2024 025 [facility], [address] [place] [address], [id number], 10/17/2024 13:17:34 CMP, serum or plasm a 2022 023 [facility] (Centralized Electronic Ordering - All Locations), Patient Can Go To The Location Of Their Choice, [id number] 05/03/2023 10:40:05 CBC w/ auto diff 2022 023 [facility] (Centralized Electronic Ordering - All Locations), Patient Can Go To The Location Of Their Choice, [id number] 05/03/2023 10:40:05 lipid panel , blood 2022 023 [facility] (Centralized Electronic Ordering - All Locations), Patient Can Go To The Location Of Their Choice, [address] 05/03/2023 10:40:05 PSA, serum or plasm a 2022 023 [facility] (Centralized Electronic Ordering - All Locations), Patient Can Go To The Location Of Their Choice, [id number] 05/03/2023 10:40:05 Referral gastr maddy colon ist refer ral 2024 025 [facility], [address] [place] [address] Dr, [facility], [facility] YVONNE, [address], 10/17/2024 09:07:56 ortho pedic surge on refer ral 2023 024 [facility], [address], [address], [place], [address], 04/18/2024 13:36:04 Procedures None recor ded. Surgeries None recor ded. Imaging CT, chest , w/o contr ast - Patie nt does NOT have insur ance 2021 022 [facility], [address] [place], [address], 03/10/2022 08:27:26 Medication Orders propr anolo l ER 120 mg capsu le,24 hr,ex tende d relea se 2024 025 [facility] [place], [place], [address] [place], [address], 02/07/2025 13:47:35 albut lani sulfa te HFA 90 mcg/a ctuat ion aeros ol inhal er 2024 025 [facility] [place], [address], [place], [address], 02/07/2025 13:47:37 amlod ipine 10 mg table t 2024 025 [facility] [place], [place], [address], [place], [address], 02/07/2025 13:47:37 Tobra Dex 0.3 %-0.1 % eye drops ,susp ensio n 2024 025 [facility] [place], [place]ne, [address], [place], [address], 10/16/2024 10:06:10 propr anolo l ER 120 mg capsu le,24 hr,ex tende d relea se 2023 024 [facility] [place], [place]ne, [address] [place], [address], 11/04/2024 12:22:28 loraz epam 1 mg table t 2023 024 [facility] [place], [place], [address], [place], [address], 05/30/2024 11:23:43 amlod ipine 10 mg table t 2023 024 [facility] [place], [place], [address] [place], [address], 11/04/2024 12:22:28 propr anolo l ER 120 mg capsu le,24 hr,ex tende d relea se 2022 023 [facility] [place], [place], [address] [place], [address], 02/07/2024 11:21:02 amlod ipine 10 mg table t 2022 023 [facility] [place], [address] [place], [address], 02/07/2024 11:21:01 loraz epam 1 mg table t 2022 [id number] [facility] [place], [address] [place], [address], 02/08/2024 23:52:33 albut lani sulfa te 2.5 mg/3 mL (0.08 3 %) solut ion for nebul izati on 2022 [facility] [place], [address] [place], [address], 05/07/2023 10:36:53 albut lani sulfa te 2.5 mg/3 mL (0.08 3 %) solut ion for nebul izati on 2021 [facility] [place], [address] [place], [address], 02/19/2022 09:21:10 Flove nt HFA 110 mcg/a ctuat ion aeros ol inhal er 2021 [facility] [place], [address] [place], [address], 02/19/2022 09:21:10 benzo natat e 200 mg capsu le 2021 [email or web address] [facility] [place], [address] [place], [address], 05/03/2023 10:15:52 Patient TargetsNo targets recorded. Patient InstructionsNo instructions recorded. Reason for Referral Orthopedic Surgeon Referral for Pain of left shoulder joint needs second opinion for bilateral shoulder tears & degenerative changes Referring Physician: Danni Mehta, Internal Medicine, Encounter Date: 04/18/2024 [employer] Referral for Screening colonoscopy due for 10 year colonoscopy Referring Physician: Danni Mehta, Internal Medicine, Encounter Date: 10/16/2024 Results Created Date Observation Date Name Description Value Unit Range Abnormal Flag Note LastModifiedBy Organization Detail LastModifiedTime 03/25/2003/25/2022 CT, chest , w/o contr ast No observ ation record ed. [email or web address] [facility] [address] [place], [address], 03/29/2022 16:54:00 Result Notes None recorded. Problems Name Problem SNOMED Code Status Onset Date Resolution Date Notes Provider Name and Address Organization Details Recorded Time Anxiety 69081864 Active 2017 stress reaction Not Available [facility] 3 23:42:13 [facility] hyperten giovanni 65717200 Active 2017 Not Available [facility] 3 23:42:13 Divertic ulitis 288541370 Active 2017 Not Available [facility] 3 23:42:13 Chronic low back pain 455260906 Active 2021 Not Available [facility] 3 23:42:13 Chronic obstruct gunnar pulmonar y disease 78328808 Active 2021 NAVA GRUBBS [address] [place], [address], [facility] [place], [facility] 5 09:50:05 Gastroes ophageal reflux disease without esophagi tis 158795696 Active 2021 NAVA GRUBBS [address] [place], [address], [facility] [place], operated [facility] 5 09:57:26 Gastroes ophageal reflux disease 720603532 Active 2022 Not Available [facility] 3 23:42:12 Pain of left shoulder joint 11999950479 618155 Active 2023 NAVA GRUBBS [address] [place], [address], [facility], [place], operated [facility] 4 09:27:33 Pain of right shoulder joint 73329034060 854509 Active 2023 NAVA GRUBBS [address] [place], [address], [facility], [place], [facility] Internal [facility] 4 09:27:50 Hordeolu m externum of lower eyelid of left eye 36547502604 9102 Active 2024 NAVA GRUBBS [address] [place], [address], [facility], [place], [facility] Internal [facility] 5 08:59:28 Notes:Some problems listed i n Documents: #[id number], #[id number], #[id number], #[id number], #[id number], #[id number] could not be added to this patient's [...] Not available Not available Not available 10/05/2017 96321 8003 SNOMED Lianne Blanco [facility] 8 10:18:50 3502 lisinopri l medicatio n nausea Not available Not available 01/29/2019 69723 RxNorm [facility] 11:58[facility]33 993 Product containin g penicilli n (product) medicatio n Not available Not available Not available 09/05/2017 07612 8001 SN[facility]ED [facility] 08:05:50 Medications Name Sig Start [...] TABLET BY MOUTH EVERY 8 HOURS NEEDED 2024 active Not Available Not Available Not Avai lable albuterol sulfate HFA 90 mcg/actua tion aerosol [...] BY OPHTHALM IC ROUTE EVERY 6 HOURS 2024 active Not Available Not Available Not Avai lable duloxetin e 30 mg capsule,d elayed release [...] (BMI) Body weight Heart rate Oxygen saturation Systolic And Diastolic Provider Name and Address Organization Details Last Updated DateTime 5 175.26 cm 23.8 kg/m2 17389.1 7 g 63 /min 98 % 122/78 mm[Hg] Marianna Garcias [facility] 5 08:54:07 Date Recorded Body height Body mass index (BMI) Body weight Heart rate Oxygen saturation Systolic And Diastolic Provider Name and Address Organization Details Last Updated DateTime 5 175.26 cm 23.8 kg/m2 09808.3 7 g 60 /min 98 % 128/70 mm[Hg] Kim Avilez [facility] 5 09:41:24 Date Recorded Body height Oxygen saturation Heart rate Systolic And Diastolic Provider Name and Address Organization Details Last Updated DateTime 02/19/2022 175.26 cm 96 % 72 /min 124/70 mm[Hg] Hollie Hauser [facility] 02/19/2022 08:57:55 Date Recorded Body height Body mass index (BMI) Body weight Heart rate Oxygen saturation Systolic And Diastolic Provider Name and Address Organization Details Last Updated DateTime 4 175.26 cm 23.6 kg/m2 63489.7 8 g 60 /min 98 % 120/80 mm[Hg] Kim Avilez [facility] 4 09:10:07 Date Recorded Body weight Heart rate Oxygen saturation Systolic And Diastolic Provider Name and Address Organization Details Last Updated DateTime 05/03/2023 86424.96 g 62 /min 99 % 98/62 mm[Hg] Ester Shanks [facility] 05/03/2023 10:18:37 Social History Question Answer Notes LastModified by Organizat ion Details LastModified Time Tobacco Smoking Status Current Some Day Smoker Not Available [facility] 03/18/2020 03:36:23 What Was The Date Of Your Most Recent Tobacco Screening? 02/06/2025 [email or web address] Information not available 02/06/2025 How Much Tobacco Do You Smoke? 0.25 PPD Information not available 09/09/2021 How Many Years Have You Smoked Tobacco? 40 [id number] Information not available 03/18/2020 Sex: Unknown Functional [...] mcg/0.3 mL dose 1 completed Not Available [facility] 05/05/2023 23:42:13 COVID-19, mRNA, LNP-S, PF, 30 mcg/0.3 mL dose 1 completed Not Available [facility] 05/05/2023 23:42:13 COVID-19, mRNA, LNP-S, PF, 30 mcg/0.3 mL dose 1 completed Not Available [facility] 05/05/2023 23:42:13 Influenza, split virus, quadrivalent, preservative 1 completed Not Available [facility] 05/05/2023 23:42:13 Tdap 8 completed Not Available [facility] 05/05/2023 23:42:13 Influenza, split virus, quadrivalent, preservative 9 completed Not Available [facility] 05/05/2023 23:42:13 Past Encounters Encounter ID Performer Location Encounter Start Date Encounter Closed Date Diagnosis/Indication Diagnosis SNOMED-CT Code Diagnosis ICD10 Code Diagnosis IMO Codes Diagnosis Note [id number] Nando López DO [facility] [address] [facility],[place] [address] 09/05/2017 13:46:20 09/05/2017 15:35:07 Anxiety 80892401 F41.9 not well controlled on lorazepam alone [...] BP and anxiety are stabilized Essential hypertension 97184303 I10 continue lisinopril , amlodipine , propranolo l f/u 2 weeks, further changes at that time. too early to assess full affect of amlodpine Cyst of epididymis 76692 002 N50.3 found in ED, seen on u/s [id number] Nando López [facility] [address] [place] [address],[place] [address] 10/05/2017 10:08:01 10/05/2017 11:11:27 Anxiety 67314193 F41.9 still on just the lorazepam 1 mg TID anxiety has been a little better, not as tired or fatigued has been working less Essential hypertension 10586875 I10 continue lisinopril , amlodipine , propranolo l f/u 2 weeks, further changes at that time. too early to assess full affect of amlodpine Cyst of epididymis 98811 002 N50.3 has f/u with urology [id number] Nando López [facility] Internal [address],[facility] [address] 11/02/2017 11:03:43 11/02/2017 11:58:25 Anxiety 54932606 F41.9 still on just the lorazepam 1 mg TID, tries to take fewer doses, but then his anxiety amps up anxiety has been a little better, not as tired or fatigued he's been on disability for poorly controlled htn, which is exacerbate d by stress/anx iety of his job already seeing therapy. not seeing psych - will consult Essential hypertension 05878302 I10 continue lisinopril , propranolo l increase amlodipine Cyst of epididymis 08639 002 N50.3 has f/u with urology [id number] Nando López [facility] Medicine [address] [facility], shalini [place] [address] 12/06/2017 08:53:34 12/06/2017 09:46:06 Anxiety 83552956 F41.9 still on just the lorazepam 1 mg TID he's been on disability for poorly controlled htn, which is exacerbate d by stress/anx iety of his job already seeing therapy. not seeing psych - will consult Essential hypertension 26081950 I10 well controlled on current regimen Cyst of epididymis 93437 002 N50.3 has f/u with urology Joint pain in right hand 4463845981 009029 M25.541 [id number] Nando López, [facility] [address] [facility],[place]in[place] [address] 01/06/2018 09:01:14 01/06/2018 13:57:58 Anxiety 81982898 F41.9 still on just the lorazepam 1 mg TID he's been on disability for poorly controlled htn, which is exacerbate d by stress/anx iety of his job already seeing therapy. he's been seeing [facility]ri [facility], but they are not really working to get his anxiety in any better control he will consider alternativ e providers. he understand s that if he chooses to pursue LT disability he will have to have the psychiatri st qualify this as I am no longer filling out disability on the basis of poorly controlled HTN. Essential hypertension 45837238 I10 well controlled on current regimen Screening procedure 2012 5006 Z13.9 [id number] Nando López DO [facility] [address] [facility], [place] [address] 02/07/2018 09:15:48 02/07/2018 10:08:26 Anxiety 36171040 F41.9 still on just the lorazepam 1 mg TID he's been on disability for poorly controlled htn, which is exacerbate d by stress/anx iety of his job already seeing therapy. he's been seeing psychiatri st at [facility], but they are not really working to get his anxiety in any better control he will consider alternativ e providers. he understand s that if he chooses to pursue LT disability he will have to have the psychiatri st qualify this as I am no longer filling out disability on the basis of poorly controlled HTN. Essential hypertension 74017196 I10 well controlled on current regimen Screening procedure 2012 5006 Z13.9 [id number] Nando López [facility] [address] [facility],[place] [address] 05/05/2018 10:35:55 05/05/2018 15:54:36 Anxiety 61377352 F41.9 stable on the lorazepam pt will call for the rx, paying out of pocket until insurance kicks back in Essential hypertension 06076056 I10 well controlled on current regimen pt will call for rx [id number] Nando López [facility] Medicine [address] [facility],[place] [address] 12/26/2018 14:55:28 12/26/2018 15:56:33 Decrease in appetite 82105856 R63.0 will get labs as below Unintentio nal weight loss 483819472 R63.4 has lost about 10 lbs from 6 months ago Essential hypertension 85957039 I10 well controlled on current regimen pt will call for rx Anxiety 54071924 F41.9 stable on the lorazepam well controlled Screening procedure 2012 5006 Z13.9 [id number] Nando López [facility] Medicine [address] [facility],[place] [address] 01/29/2019 11:29:28 01/29/2019 13:35:57 Acute low back pain 629774136 M54.5 will defer PT at this time Anxiety 83736513 F41.9 stable on the lorazepam well controlled Essential hypertension 02043495 I10 well controlled on current regimen pt will call for rx [id number] Nando López [facility] Medicine [address] [facility] on [place] [address] 05/02/2019 09:07:03 05/02/2019 09:35:22 Essential hypertension 10275890 I10 stable relates tolerating the med Diverticulitis 402586540 K57.92 quiet and is doing great Anxiety 32909640 F41.9 will do ok and cont his current tx [id number] Nando López [facility] Medicine [address] [facility] on [place] [address] 11/02/2019 15:48:02 11/02/2019 16:28:56 Anxiety 73804182 F41.9 stable Essential hypertension 31965177 I10 BP 124/90, excellent control on medication [id number] Nando López [facility] Medicine [address] [facility],[place] [address] 12/24/2019 14:07:20 12/24/2019 14:59:51 Lumbago with sciatica 614630650 M54.42 will try anther pred taper and see if he improves had improvemen t last time he was on a pred taper Anxiety 67739621 F41.9 stable Essential hypertension 25278981 I10 BP 124/80, excellent control on medication [id number] Nando López [facility] Medicine [address] [facility],[place] [address] 01/01/2020 13:37:02 01/01/2020 14:40:21 Acute low back pain 497286036 M54.5 worsening Lumbar radiculopathy 128 805635 M54.16 still radiating down his leg with certain positions Spinal jos nosis of lumbar region 29642559 M48.061 no comfortabl e position > seeing specialist , will give short course of percocet [id number] Nando López [facility] [address] [facility],[place] [address] 02/11/2020 09:21:32 02/11/2020 12:09:36 Depressive disorder 18893304 F32.9 will try patient on cymbalta and see if he has improvemen t on that Low back pain 968677208 M54.5 some improvemen t due to insurance issue the patient cannot see specialist but is working on getting on disability will work on paperwork [id number] Nando López [facility] Medicine [address] [facility],[place] [address] 04/04/2020 09:31:37 04/04/2020 10:17:17 Anxiety 69563747 F41.9 stable Depressive disorder 3548 9007 F32.9 would like to increase dose will see if 60 mg is more beneficial if not can do max of 120 mg per day Essential hypertension 24631181 I10 needs refills [id number] Nando López [facility] Medicine [address] [facility] on [place] [address] 12/02/2020 09:39:57 12/02/2020 10:52:55 Anxiety 56015583 F41.1 stable Essential hypertension 31796912 I10 stable Depressive disorder 3548 9007 F32.9 stable Degenerati on of lumbar intervertebral disc 03292028 M51.36 discussed alternativ es for second opinions Ex-smoker 9937024 Z87.89 1 will fu with screening XR first [id number] Nando López [facility] Medicine [address] [facility] on [place] [address] 09/09/2021 09:14:20 09/09/2021 17:01:39 Anxiety 96661213 F41.1 stable Essential hypertension 91015247 I10 stable Chronic low back pain 27 1876783 M54.59 stable [id number] Nando López [facility] [address] [facility] on [place] [address] 02/19/2022 08:51:17 02/19/2022 10:51:56 Chronic obstructive pulmonary disease 36953812 J41.[address] up [address] for further evaluation of his lungsstart on neb treatment PRN for flare upsstart on ICS, will see what his insurance covers Kareem Zimmermanes refilled [id number] Nando López [facility] Medicine [address] [facility] on [place] [address] 05/03/2023 10:12:00 05/03/2023 14:53:17 Chronic obstructive pulmonary disease 79791581 J41.0 stable Anxiety 40620133 F41.1 stable Gastroesop hageal reflux disease 737351103 K21.9 will set up with propranolo l Adult heal th examination 734242420 Z00.00 stable [id number] Nando López [facility] Medicine [address] [facility] on [place] [address] 04/18/2024 09:02:35 04/18/2024 09:48:13 Chronic obstructive pulmonary disease 71672827 J41.0 stable Anxiety 89621042 F41.1 stable Pain of le ft shoulder joint 4530033003 4121818 M25.512 needs to f/u with a second opinion Pain of ri ght shoulder joint 9042399020 9504941 M25.511 tear of the supraspina tus now Gastroesop hageal reflux disease 801676288 K21.9 needs refill [id number] Nando López [facility] Medicine [address] [facility],[place] [address] 10/16/2024 08:48:23 10/16/2024 14:55:38 Depression screening 489750367 Z13.31 negative Hordeolum externum of lower eyelid of left eye 0748940524 48229 H00.798 9165744 will start on topical drop for eyes Chronic ob structive pulmonary disease 05376323 J41.0 stable Essential hypertension 21577166 I10 stable Screening colonoscopy 44 5459753 Z12.11 467158 will set up with GI referral for 10-year repeat colonoscop y Screening for malignant neoplasm of prostate 041029722 Z12.5 437321 needs screening [id number] Nando López [facility] Medicine [address] [facility],[place] [address] 02/06/2025 09:33:51 02/06/2025 10:23:09 Anxiety 42712328 F41.1 stable Gastroesop hageal reflux disease 432938885 K21.9 needs refill Chronic ob structive pulmonary disease 33732855 J41.0 stable Gastroesop hageal reflux disease without esophagitis 389822423 K21.00 stable Health Concerns Section Related Observation LastModified by Organization Detai ls LastModified Time None Recorded Concern Status LastModified by Organization Details LastModified Time None Recorded Advance Directives Directive None Recorded Payers Insurance Date Sequence Insurance Name Policy Number Policy Villafuerte Covered Member ID Villafuerte Member ID Guarantor Name 02/03/2025 1 [facility] [place] [facility] (MEDICAID HMO) MAMMP Sonny Tremmed [id number] Sonny Lowe 01/29/2020 *SELF PAY* Shay Lowe 12/25/2019 *SELF PAY* Shay Myerspe 05/02/2023 SLIDING FEE SCHEDULE - DISCOUNT Sonny Trempe 04/18/2024 1 [facility] [id number] Sonny Rivas Trempe [id number] Sonny Trempe 04/18/2024 1 [place] [facility] Sonny Trempe [id number] Sonny Trempe 04/18/2024 1 [facility] (MEDICAID REPLACEMENT - HMO) [id number] Sonny Trempe [id number] Sonny Trempe 04/18/2024 1 [facility] (MEDICAID REPLACEMENT - HMO) [id number] Sonny Trempe [id number] Sonny Trempe Notes Date Note Type Note Provider Name a hi Address Organization Details Recorded Time 2 text/html ROS as noted in the HPI ER f/u the patient reports that he has congestion and coughXR showed possible COPD, will get CT for more clear view of the lungs for confirmation will start on correct inhalerscontinue albuterol, ipatropium, start ICS inhaler set up with nebulizer refill cough suppressant, use PRN will fu after CT [facility] GR[facility] [address] [place] [address], [place], [address], [facility] 02/19/2022 09:25:22 3 [...] of his left shouldercurrently going to in [place], [place] his average resting HR is around 55 bpm asthma has been stable BP is excellent NAVA GRUBBS [address] [place] [address], [place], [address], [facility], [place], operated [facility] 05/03/2023 [...] of their medications needed today at the appointmentwell-contro lled on medicationdenies chest pain, sob, ankle swelling, orthopnea, palpitations will set up with second opinion for the L shoulder COPD stableGERD stable will try of the duloxetine since he thinks it's causing weeping eyes [address] [place], [address], [facility], [place], operated by [facility] 04/18/2024 09:45:46 5 text/html ROS as noted in the HPI 6 mos medication check HTN: today in the office the patient BP is 122/78 L arm sittingthe patient is doing well on the BP medication with no side effects and no adjustment of their medications needed today at the appointmentwell-contro lled on medicationdenies chest pain, sob, ankle [...] treatment for mental health. NAVA [address] [facility], [place], [address], [facility], [place], operated by [facility] 10/16/2024 [...] for infectionalso using warm compresses NAVA [facility]BS [address] [place] [address], [phone], [facility] 02/06/2025 10:01:24
--- OUTSIDE RECORDS SUMMARY | 2025-04-04 17:19 | XMS_ITS | Encounter Summary ---
Author Organization [facility] Address [address] [employer] [facility] [address] [place] [address] Phone Care Team Providers Care Chemistry Laboratory Technician Name Role Phone Nando López DO Primary Care Provider [phone] Encounter Details Date Type Department Care Team (Latest Contact Info) Description 06/08/2017 Transcribe Orders Virtual Department [address] [place] [address] Tami Haney PA-C [address] [place] [address] [email or web address] Chest pain, unspecified type (Primary Dx) Social [...] Primary documented in this encounter Care Teams Chemistry Laboratory Technician Relationship Specialty Start Date End Date Nando López DO PCP - General Internal Medicine 12/06/17 documented as of this encounter Additional Source Comments The information contained in this document represents components of the legal health record. It is not the complete legal health record.[facility]
--- OUTSIDE RECORDS SUMMARY | 2025-04-04 17:19 | XMS_ITS | Encounter Summary ---
Author Organization [facility] Address [address] [employer] [facility] [address] [place] [address] Phone Care Team Providers Care Transit Vehicle Inspector Name Role Phone Nando López DO Primary Care Provider [phone] Encounter Details Date Type Department Care Team (Late st Contact Info) Description 06/07/2017 Ancillary Orders Virtual Department [address] [place] [address] Tami Haney, LORENE [address] [place] [address] Social History Tobacco Use Types Packs/Day Years [...] on filedocumented in this encounter Care Teams Transit Vehicle Inspector Relationship Specialty Start Date End Date Nando López DO PCP - General Internal Medicine 12/06/17 documented as of this encounter Additional Source Comments The information contained in this document represents components of the legal health record. It is not the complete legal health record.[facility]
--- OUTSIDE RECORDS SUMMARY | 2025-04-04 17:20 | XMS_ITS | Clinical Summary ---
Author Organization [facility] Address [address] [place] [address] Phone Care Team Providers Care Qlikview Developer Name Role Phone Nando López Primary Care Provider [phone] Social History Tobacco Use Types Packs/Day Years [...] 2014 ZOSTER VACCINES (1 of 2) 2014 INFLUENZA VACCINE (#1) 2024 , 03/31/2019 COVID-19 VACCINE (2024-2 6 season) 2025 04/15/2021, 10/03/2020, 09/11/2020 RSV VACCINE (1 - [...] Not on file Insurance [address] [place], [place] [address] [place], [place] [address] [place], [place] [address]O Care Teams Qlikview Developer Relationship Specialty Start Date End Date Nando López DO [email or web address] PCP - General Internal Medicine 12/06/17 Additional Source Comments The information contained in this document represents components of the legal health record. It is not the complete legal health record.[facility]
--- OUTSIDE RECORDS SUMMARY | 2025-04-04 17:20 | XMS_ITS | Continuity of Care Document ---
Author Organization [place] - [facility], [facility] Address [address] [facility] [place] [address] [place] [address] Assessment No assessment recorded. Plan of Treatment Reminders Order Date Submit Date Provider Last Modified By Organization Details Last Modified Time Details Appointments FOLLOW UP 15 2024 10:30A M NAVA GRUBBS Not available Not available Not available Lab None recorded. Referral None recorded. Procedures None recorded. Surgeries None recorded. Imaging None recorded. Medication Orders propranol ol ER 120 mg capsule,2 4 hr,extend ed release 2024 025 [facility] # - [place], [address] [place], [address], 02/07/2025 13:47:35 albuterol sulfate HFA 90 mcg/actua tion aerosol inhaler 2024 025 [facility] - [place], [address] [place], [address], 02/07/2025 13:47:37 amlodipin e 10 mg tablet 2024 025 [facility] [facility], [address] [place], [address], 02/07/2025 13:47:37 Patient TargetsNo targets recorded. Patient InstructionsNo instructions recorded. Reason for Referral None Reported. Problems Name Problem SNOMED Code Status Onset Date Resolution Date Notes Provider Name and Address Organization Details Recorded Time Anxiety 16620130 Active 2017 stress reaction Not Available [facility] 23:42:13 [facility] giovanni 80471604 Active 2017 Not Available [facility] 3 23:42:13 Divertic ulitis 657786429 Active 2017 Not Available [facility] 3 23:42:13 Chronic low back pain 916362536 Active 2021 Not Available [facility] 3 23:42:13 Chronic obstruct gunnar pulmonar y disease 38987490 Active 2021 [address] [place], [address], [facility] 5 09:50:05 Gastroes ophageal reflux disease without esophagi tis 907049398 Active 2021 [address] [place], [address], [facility] 5 09:57:26 Gastroes ophageal reflux disease 361592228 Active 2022 Not Available [facility] 3 23:42:12 Pain of left shoulder joint 59351192950 544694 Active 2023 [address] [place], [address], [facility] 4 09:27:33 Pain of right shoulder joint 60134045762 067743 Active 2023 [address] [place], [address], [facility] 4 09:27:50 Hordeolu m externum of lower eyelid of left eye 23515167613 9102 Active 2024 [address] [place], [address], [facility] 5 08:59:28 Notes:Some problems listed i n Documents: #[id number], #[id number], #[id number], #[id number], #[id number], #[id number] could not be added to this patient's [...] Not available Not available Not available 10/05/2017 [id number] [address] [facility] 8 10:18:50 3502 lisinopri l medicatio n nausea Not available Not available 01/29/2019 63160 RxNorm lost wt. Lianne horne [facility] 9 11:58:33 993 Product containin g penicilli n (product) medicatio n Not available Not available Not available 09/05/2017 [id number] [facility] [facility] 8 08:05:50 Medications Name Sig Start [...] Updated DateTime 5 175.26 cm 23.8 kg/m2 84959.3 7 g 60 /min 98 % 128/70 mm[Hg] [facility] 5 09:41:24 Social History Question Answer Notes LastModified by Organizat ion Details LastModified Time Tobacco Smoking Status Current Some Day Smoker Not Available [facility] 03/18/2020 03:36:23 What Was The Date Of Your Most Recent Tobacco Screening? 02/06/2025 [email or web address] Information not available 02/06/2025 How Much Tobacco Do You Smoke? 0.25 PPD Information not available 09/09/2021 How Many Years Have You Smoked Tobacco? 40 [id number] Information not available 03/18/2020 Sex: Unknown Functional [...] mcg/0.3 mL dose 1 completed Not Available [facility] 05/05/2023 23:42:13 COVID-19, mRNA, LNP-S, PF, 30 mcg/0.3 mL dose 1 completed Not Available [facility] 05/05/2023 23:42:13 COVID-19, mRNA, LNP-S, PF, 30 mcg/0.3 mL dose 1 completed Not Available [facility] 05/05/2023 23:42:13 Influenza, split virus, quadrivalent, preservative 1 completed Not Available [facility] 05/05/2023 23:42:13 Tdap 8 completed Not Available [facility] 05/05/2023 23:42:13 Influenza, split virus, quadrivalent, preservative 9 completed Not Available [facility] 05/05/2023 23:42:13 Past Encounters Encounter ID Performer Location Encounter Start Date Encounter Closed Date Diagnosis/Indication Diagnosis SNOMED-CT Code Diagnosis ICD10 Code Diagnosis IMO Codes Diagnosis Note [id number] DO [facility] [address] [facility],[place] [address] 02/06/2025 09:33:51 02/06/2025 10:23:09 Anxiety 26249969 F41.1 stable Gastroesop hageal reflux disease 051852149 K21.9 needs refill Chronic ob structive pulmonary disease 77237379 J41.0 stable Gastroesop hageal reflux disease without esophagitis 432502452 K21.00 stable Health Concerns Section Related Observation LastModified by Organization Detai ls LastModified Time None Recorded Concern Status LastModified by Organization Details LastModified Time None Recorded Payers Encounter Date Sequence Insurance Name Policy Number Policy Villafuerte Covered Member ID Villafuerte Member ID Guarantor Name 02/06/2025 1 [facility] (MEDICAID HMO) [facility] Sonny Lowe [id number] Sonny Lowe Notes Date Note Type Note Provider Name a nd Address Organization Details Recorded Time 02/06/2025 text/html ROS as noted in the HPI [...] for infectionalso using warm compresses [address] [facility], [place], [address], [facility] Carlos [facility] 02/06/2025 10:01:24
--- NOTE | 2025-04-15 10:32 | HO.ANESPROP2 ---
Documented by User: Amanda Juarez NP 04/15/25 10:32 HPI - Anesthesia Eval Consult details Narrative: 59 yr old male for Upper Endoscopy and Colonoscopy PMF Active Problems Active Problems: All Active Problems Acid reflux (Acute) Colon cancer screening (Acute) Elevated liver enzymes (Acute) Screening PSA (prostate specific antigen) (Acute) Spermatocele of epididymis, multiple (Acute) Past Medical History Medical History (Updated 04/17/25 @ 08:32 by Ayde Sweet, RN) COPD (chronic obstructive pulmonary disease) Acid reflux Colon cancer screening Elevated liver enzymes Anxiety Leg pain Lumbar degenerative disc disease Depression PTSD (post-traumatic stress disorder) HTN (hypertension) Family History Family History (Updated 02/14/25 @ 08:28 by Emily Gongora CNP) Father Brain tumor Cancer Mother Cancer Sister Cancer Surgical History Surgical History Hx of shoulder replacement Hx of right knee surgery Hx of colonoscopy History of hydrocelectomy Social History Social History Alcohol intake: never Comment: Medicated, see MAR Patient Tobacco Use Status: Current everyday Tobacco user Tobacco use type: Cigarette Cigarettes Per Day: 10 Use of substances other than those prescribed or required for medical reasons: No Are you DNR?: No Advance Directives: No Advance Directives Information Provided: Yes Meds Allergies Allergy/AdvReac Type Severity Reaction Status Date / Time aspirin (ASA) Allergy Intermediate GI Verified 04/17/25 07:54 IRRITATION lactose (LACTOSE) Allergy Intermediate GI Verified 04/17/25 07:54 PAIN/BLOATING lisinopril Allergy Intermediate Abdominal Verified 04/17/25 07:54 Pain sulfur dioxide (SULFUR Allergy Intermediate RESP.DISTRE Verified 04/17/25 07:54 DIOXIDE) SS shellfish derived (shellfish) Allergy Mild Stomach Verified 04/17/25 07:54 Upset sulfadiazine Allergy Unknown Unknown Verified 04/17/25 07:54 acetaminophen (From Percocet) AdvReac Mild Headache Verified 04/17/25 07:54 oxycodone (From Percocet) AdvReac Mild Headache Verified 04/17/25 07:54 Home Medications ?Medication ?Instructions ?Recorded ?Confirmed ?Last Taken ?Type amlodipine 10 mg tablet 1 tab PO BEDTIME 09/02/20 04/17/2509/08/21 History lorazepam 1 mg tablet 1 tab PO Q8H PRN Anxiety 09/02/20 04/17/25 09/08/20 History propranolol 120 mg capsule,24 1 cap PO BEDTIME 09/02/20 04/17/25 09/08/20 History hr,extended release albuterol sulfate 90 mcg/actuation 2 puff inhalation Q6H PRN 02/14/25 04/17/25 Unknown History aerosol inhaler (Ventolin HFA) Shortness Of Breath Or Wheezing tobramycin 0.3 %-dexamethasone 0.1 1 drp ophthalmic (eye) Q6H 02/14/25 04/17/25 Unknown History % eye drops,suspension albuterol sulfate 0.63 mg/3 mL 0.63 mg inhalation Q4H PRN 04/17/25 04/17/25 Unknown History solution for nebulization Shortness Of Breath Or Wheezing Documented by User: Yumiko Ram MD 04/17/25 08:39 [facility] Past Medical History Medical History (Updated 04/17/25 @ 08:32 by Ayde Sweet, LUCIANO) COPD (chronic obstructive pulmonary disease) Acid reflux Colon cancer screening Elevated liver enzymes Anxiety Leg pain Lumbar degenerative disc disease Depression PTSD (post-traumatic stress disorder) HTN (hypertension) Family History Family History (Updated 02/14/25 @ 08:28 by Emily Gongora CNP) Father Brain tumor Cancer Mother Cancer Sister Cancer Family history of problems with anesthesia: No Surgical History Surgical History Hx of shoulder replacement Hx of right knee surgery Hx of colonoscopy History of hydrocelectomy History of Problems with Anesthesia: No Social History Social History Alcohol intake: never Comment: Medicated, see MAR Patient Tobacco Use Status: Current everyday Tobacco user Tobacco use type: Cigarette Cigarettes Per Day: 10 Use of substances other than those prescribed or required for medical reasons: No Are you DNR?: No Advance Directives: No Advance Directives Information Provided: Yes Meds Allergies Allergy/AdvReac Type Severity Reaction Status Date / Time aspirin (ASA) Allergy Intermediate GI Verified 04/17/25 07:54 IRRITATION lactose (LACTOSE) Allergy Intermediate GI Verified 04/17/25 07:54 PAIN/BLOATING lisinopril Allergy Intermediate Abdominal Verified 04/17/25 07:54 Pain sulfur dioxide (SULFUR Allergy Intermediate RESP.DISTRE Verified 04/17/25 07:54 DIOXIDE) SS shellfish derived (shellfish) Allergy Mild Stomach Verified 04/17/25 07:54 Upset sulfadiazine Allergy Unknown Unknown Verified 04/17/25 07:54 acetaminophen (From Percocet) AdvReac Mild Headache Verified 04/17/25 07:54 oxycodone (From Percocet) AdvReac Mild Headache Verified 04/17/25 07:54 Home Medications ?Medication ?Instructions ?Recorded ?Confirmed ?Last Taken ?Type amlodipine 10 mg tablet 1 tab PO BEDTIME 09/02/20 04/17/25 09/08/20 History lorazepam 1 mg tablet 1 tab PO Q8H PRN Anxiety 09/02/20 04/17/25 09/08/20 History propranolol 120 mg capsule,24 1 cap PO BEDTIME 09/02/20 04/17/25 09/08/20 History hr,extended release albuterol sulfate 90 mcg/actuation 2 puff inhalation Q6H PRN 02/14/25 04/17/25 Unknown History aerosol inhaler (Ventolin HFA) Shortness Of Breath Or Wheezing tobramycin 0.3 %-dexamethasone 0.1 1 drp ophthalmic (eye) Q6H 02/14/25 04/17/25 Unknown History % eye drops,suspension albuterol sulfate 0.63 mg/3 mL 0.63 mg inhalation Q4H PRN 04/17/25 04/17/25 Unknown History solution for nebulization Shortness Of Breath Or Wheezing Exam Airway Mallampati Class: I (edentulous) TM Dist: >3cm Neck ROM: Full Heart: rrr Lungs: cta Assessment and Plan Assessment Anesthesia Assessment: Anesthesia Plan Discussed and Chart Reviewed Final Anesthetic Review Family History of Problems with Anesthesia: No History of Problems with Anesthesia: No NPO: Yes ASA Class: II Final Preanesthetic Review: No Changes in Pt Med Stat, Meds/Allgs Chart Reviewed and Consent Obtained/Reviewed Patient Risk: Intermediate Procedure Risk: Intermediate Anesthetic Plan Anesthetic Plan: MAC: Disposition: Standard PACU
[2025-04-15 13:40] VITALS: BMI 24.8
[2025-04-17 08:14] VITALS: BMI 24.1
[2025-04-17 08:21] VITALS: BP 113/65; PULSE 57; RESP 15; TEMP 37.2; O2SAT 96
[2025-04-17] MEDS: Lactated Ringers 1,000 ML 100 ML IVCONT (08:30)
--- NOTE | 2025-04-17 08:42 | P.HPSUR_ITS ---
Pre-Procedural Eval Section A - 24 Hr Update-Section A only Date of Service: 04/17/25 Section B - Complete if H&P > 30 days Chief Complaint: gerd,screening Relevant Family History (Specify if Yes): No Relevant Social History: Tobacco Use Present Medications: see Short Stay Collaborative assessment Medical History: Significant History (Acid reflux Colon cancer screening Elevated liver enzymes Anxiety Leg pain Lumbar degenerative disc disease Depression PTSD (post-traumatic stress disorder) HTN (hypertension)) History of Previous Operations: Relevant previous surgery/procedure and date(s) (Hx of shoulder replacement Hx of right knee surgery Hx of colonoscopy History of hydrocelectomy) Allergies: Allergies Allergy/AdvReac Type Severity Reaction Status Date / Time aspirin (ASA) Allergy Intermediate GI Verified 04/17/25 07:54 IRRITATION lactose (LACTOSE) Allergy Intermediate GI Verified 04/17/25 07:54 PAIN/BLOATING lisinopril Allergy Intermediate Abdominal Verified 04/17/25 07:54 Pain sulfur dioxide (SULFUR Allergy Intermediate RESP.DISTRE Verified 04/17/25 07:54 DIOXIDE) SS shellfish derived (shellfish) Allergy Mild Stomach Verified 04/17/25 07:54 Upset sulfadiazine Allergy Unknown Unknown Verified 04/17/25 07:54 acetaminophen (From Percocet) AdvReac Mild Headache Verified 04/17/25 07:54 oxycodone (From Percocet) AdvReac Mild Headache Verified 04/17/25 07:54 Review of Systems Sugical H&P ROS: Negative: Constitution, Cardiovascular, Respiratory, Neurological, Psychiatric, Hem-Onc, Allergic/Immunologic, Gastrointestinal, Genitourinary, Musculoskeletal, Integumentary, Endocrine and Eyes/Ears/Nose /Throat Exam Surgical H&P Exam: Normal: HEENT, Normal: Heart, Normal: Lungs, Normal: Extremities, Normal: Abdomen, Normal: Skin and Normal: Neurological Plan Diagnosis/Plan: Unchanged I have reviewed the history and physical and performed a pertinent physical examination on my patient. No changes have occurred unless specified. Time Spent With Patient Time: Total time managing care of this patient today ____ minutes.
--- NOTE | 2025-04-17 09:51 | HO.OPN-COLON ---
Colonoscopy Operative Note Operative Note Date of Service: 04/17/25 Narrative: Operative Information Procedure Description: EGD, Colonoscopy Indication: GERD, screening Anesthesia: MAC FLEXIBLE TRANSORAL UPPER GASTROINTESTINAL ENDOSCOPY AND COLONOSCOPY PROCEDURE NOTE UPPER ENDOSCOPY Consent: Indications for the procedure and potential complications of bleeding, perforation, reaction to medications and missed diagnosis were discussed with the patient and informed consent was obtained. Instrument: Olympus GIF H 190 J mid size upper endoscope Monitoring: Vital signs and clinical assessment, continuous EKG monitoring, Pulse oximetry, Carbon Dioxide monitoring and blood pressure monitoring were done throughout the procedure. Procedure: The patient was placed in the left lateral decubitis position and pre-procedure medications were administered and a bite block was placed. The endoscope was inserted into the mouth and advanced under direct vision to the third part of duodenum. A careful inspection was made as the upper endoscope was withdrawn including a retroflexed examination of the proximal stomach; Findings and interventions are described below. Findings: Larynx:normal Esophagus: GE junction at 40 cm, diaphragm hiatus at 40 cm, edema and bogginess GEJ with irregularity, bx taken also from distal esophagus Stomach: patchy erythema. Biopsies were obtained. Grade 2 flap valve on retroflexed examination of the cardia. Duodenum: Normal bulb and descending duodenum, Intervention: Biopsies as noted above, COLONOSCOPY Instrument: Olympus variable stiffness pediatric scope 190L Colonoscopy Monitoring: Vital signs and clinical assessment, continuous EKG monitoring, Pulse oximetry, Carbon Dioxide monitoring and blood pressure monitoring were done throughout the procedure. Colon withdrawal time was 15 minutes. Procedure: The patient was placed in the left lateral decubitis position and pre-procedure medications were administered. After a digital rectal examination of the ano-rectum, the video colonoscope was inserted into the rectum and advanced through the colon to the cecum/TI. The colonoscope was slowly withdrawn in a retrograde panoramic fashion and the colon mucosa was carefully examined including a retroflexed view of the rectum. Findings and interventions are described below. Procedure Difficulty:moderate Findings: Terminal Ileum-normal Cecum:normal Ascending Colon: normal Transverse Colon -normal Descending Colon:normal Sigmoid Colon: x 1 sessile polyp 4-5 mm removed with cold forceps, 12-14 mm pedunculated polyp injected with 1 ml of epinehprine and removed with cold snare with 3 clips applied for hemostasis and nexpowder-moderate diverticulosis noted Rectum: Retroflexion with small internal hemorrhoids, grade I Anorectum - normal Colon preparation: Penhook Bowel Preparation Scale Right colon; 2 Transverse colon: 2 Left colon; 2 (0 = Unprepared colon segment with mucosa not seen due to solid stool that cannot be cleared. 1 = Portion of mucosa of the colon segment seen, but other areas of the colon segment not well seen due to staining, residual stool and/or opaque liquid. 2 = Minor amount of residual staining, small fragments of stool and/or opaque liquid, but mucosa of colon segment seen well. 3 = Entire mucosa of colon segment seen well with no residual staining, small fragments of stool or opaque liquid) Impression and Post Procedure Diagnosis: Endoscopy Findings: esophagitis gastritis Colonoscopy Findings: diverticulosis colon polyps x 2 internal hemorrhoids Plan: Await Pathology results Repeat Colonoscopy in 3 years due to polyps or earlier if clinically indicated High fiber diet leaflet avoid straining at stool, epsom salts and sitz bath, anusol supps or cream GERd precautions Above findings were reviewed with the patient and relevant handouts were provided if indicated.
[2025-04-17 09:54] VITALS: BP 104/64; PULSE 66; RESP 16; TEMP 36.6; O2SAT 98
[2025-04-17 10:10] VITALS: BP 105/72; PULSE 64; RESP 16; TEMP 36.8; O2SAT 99
== END 2025-04-17 10:58 | disposition home or self-care (01) ==
PROVIDERS: PCP Internal Medicine; Visit Provider Internal Medicine Gastroenterology
PROC: (CPT 45385; principal; 2025-04-17 09:20)
DX: Z12.11 Encounter for screening for malignant neoplasm of colon (principal); K21.00 Gastro-esophageal reflux disease with esophagitis, without bleeding; K57.30 Diverticulosis of large intestine without perforation or abscess without bleeding; K64.0 First degree hemorrhoids; D12.5 Benign neoplasm of sigmoid colon; K63.5 Polyp of colon
CPT/HCPCS: 45385; 45381; 43239; 88305; 88313; 88342; J0168; J2003; J2704

== ENCOUNTER → 2025-04-17 07:30 | Outpatient (BNV) | payer MEDICARE, SELFPAY | PROVIDERS: PCP Internal Medicine; Visit Provider Internal Medicine Gastroenterology | DX: Z12.11 Encounter for screening for malignant neoplasm of colon (principal); K63.5 Polyp of colon; K57.30 Diverticulosis of large intestine without perforation or abscess without bleeding; K64.0 First degree hemorrhoids; K21.00 Gastro-esophageal reflux disease with esophagitis, without bleeding; K29.70 Gastritis, unspecified, without bleeding | CPT/HCPCS: 43239; 45385 ==